=== PATIENT | male | born 1945 | race Caucasian/White ===

== ENCOUNTER → 2020-04-20 13:12 | Outpatient (REF) | payer MEDICARE, SELFPAY ==
--- NOTE | 2020-04-20 13:00 | CA_ITS ---
Transthoracic Echocardiogram Patient (Last, First, Middle): Oscar Chao A Gender: Male Date of : 1945 Age: 74 Procedure Date: 04/20/2020 Procedure Type: Transthoracic Echocardiogram Location: OP Height: 180.34 cm Weight: 95.25 kg BSA: 2.15 m2 Heart Rate: bpm BP: 136 / 78 mmHg Station Helper: JOELLE Huston MD: Juan Ledesma MD Supervisor Metal Placing: Juan Ledesma MD Symptoms: CAD, HTN Study Quality: Technically Difficult ECG Rhythm: Sinus Conclusions: - 1. Technically difficult study despite use of contrast 2. Low normal LV systolic function with grade 1 diastolic dysfunction 3. Limited evaluation of cardiac valves with normal cardiac valvular Doppler 4. No gross pericardial effusion Findings Procedure Information Contrast agent, definity, is being given per protocol without apparent complications. Left Ventricle Normal left ventricular cavity size. There is normal left ventricular wall thickness. The left ventricular systolic function is low normal. The visually estimated ejection fraction is between 50-55%. Spectral Doppler is indicative of an impaired relaxation filling pattern. E/E prime ratio is <8, consistent with normal filling pressures. Evidence suggests grade I (mild) diastolic dysfunction. Right Ventricle Normal right ventricular cavity size and systolic function. Atria Both atria are normal in size. Interatrial shunt cannot be excluded. Aortic Valve The aortic valve structure and function is likely normal. There is no aortic valve stenosis. There is no aortic valve regurgitation. Mitral Valve Likely normal mitral valve structure and function. There is trace mitral valve regurgitation. There is no mitral valve stenosis. Pulmonic Valve The pulmonic valve was not well visualized. Tricuspid Valve The tricuspid valve was not well visualized. Tricuspid regurgitation envelope is inadequate for calculation of right ventricular systolic pressure. Normal right atrial pressure. Great Vessels The aorta was not well visualized. The pulmonary artery was not well visualized. Venous The inferior vena cava is normal in size and collapses greater than 50% with inspiration. Pericardium/Pleural There is no evidence of pericardial effusion. Prior Study Comparison No significant change compared to prior study dated: 05/29/2016. Measurements 2D Linear Measurements RVADd: 0.35 RVIDd: 2.75 IVSd: 0.89 0.6-0.9/0.6-1.0 cm LVIDd: 4.62 3.9-5.3/4.2-5.9 cm LVIDs: 3.75 2.0-3.6 cm LVPWd: 0.93 0.7-1.1 cm Ao Root: 3.54 2.1-3.5 cm LA Diam: 3.20 2.7-3.8/3.0-4.0 cm LV Mass: 176.44 67-162/88-224 g LVOT Diam: 2.35 3.0+(-)1.3 cm Mitral Valve MV Pk E: 0.48 MV PK A: 0.61 MV Decel Time: 281.77 E/A: 0.78 E'Lateral: 0.06 E'Medial: 0.04 PHT: 107.26 Decel [place]: 1.69 Aortic Valve AoV Pk Chris: 0.94 AoV Mn Chris: 0.77 AoV VTI: 0.16 AoV Pk Grad: 3.56 Aov Mn Grad: 2.45 LVOT LVOT Pk Chris: 0.78 LVOT Mn Chris: 0.61 LVOT VTI: 0.14 LVOT Pk Grad: 2.45 LVOT Mn Grad: 1.57 LVOT Diam: 2.35 LVOT Area: 4.33 Diastolic Function MV Pk E: 0.48 MV Pk A: 0.61 E/A: 0.78 E'Medial: 0.04 E' Laterial: 0.06 Tricuspid Valve RA Press: 3.00 Great Vessels Aorta Ao Root-2D: 3.54 2.0-3.7 cm Ao Asc: 3.45 2.1-3.4 cm Ao Arch: 3.07 Updated in Other Vendor System with Status of Final Juan Ledesma MD electronically signed on 04/21/2020 10:38:37 AM with status of Final
== END ==
LOC: HO.CARD 13:12
PROVIDERS: PCP Internal Medicine; Visit Provider Internal Medicine Cardiovascular Disease
DX: I25.10 Atherosclerotic heart disease of native coronary artery without angina pectoris (principal); I10 Essential (primary) hypertension; I45.2 Bifascicular block
CPT/HCPCS: 93306; Q9957

== ENCOUNTER → 2020-06-04 13:27 | Outpatient (BNVA) | payer MEDICARE, SELFPAY | PROVIDERS: PCP Internal Medicine; Referring Provider Internal Medicine; Visit Provider Internal Medicine Cardiovascular Disease | DX: I25.10 Atherosclerotic heart disease of native coronary artery without angina pectoris (principal); I45.2 Bifascicular block; Z79.899 Other long term (current) drug therapy | CPT/HCPCS: 93005; 99212 ==

== ENCOUNTER 2020-06-22 08:37 | Outpatient (REF) | payer MEDICARE, SELFPAY ==
[2020-06-22 10:50] LABS: Cholesterol 187 mg/dL; HDL Cholesterol 61 mg/dL; LDL Cholesterol Calculated 80 mg/dl; Triglycerides 232 mg/dL
== END 2020-06-22 08:38 | disposition home or self-care (01) ==
LOC: HO.LAB 08:37
PROVIDERS: PCP Internal Medicine; Visit Provider Internal Medicine
DX: E78.5 Hyperlipidemia, unspecified (principal)
CPT/HCPCS: 80061

== ENCOUNTER → 2021-05-28 12:14 | Outpatient (BNVA) | payer MEDICARE, SELFPAY | PROVIDERS: PCP Internal Medicine; Referring Provider Internal Medicine; Visit Provider Internal Medicine Cardiovascular Disease | DX: I25.10 Atherosclerotic heart disease of native coronary artery without angina pectoris (principal); I45.2 Bifascicular block | CPT/HCPCS: 93005; 99212 ==

== ENCOUNTER 2021-09-11 07:34 | Outpatient (REF) | payer MEDICARE, SELFPAY ==
[2021-09-11 08:25] LABS: Cholesterol 219 mg/dL; HDL Cholesterol 42 mg/dL; LDL Cholesterol Calculated 116 mg/dl; Triglycerides 306 mg/dL
== END 2021-09-11 07:35 | disposition home or self-care (01) ==
LOC: HO.LAB 07:34
PROVIDERS: PCP Internal Medicine; Visit Provider Internal Medicine
DX: E11.9 Type 2 diabetes mellitus without complications (principal)
CPT/HCPCS: 36415; 80061

== ENCOUNTER 2021-12-25 07:37 | Outpatient (REF) | payer MEDICARE, SELFPAY ==
[2021-12-25 08:53] LABS: Cholesterol 159 mg/dL; HDL Cholesterol 33 mg/dL; LDL Cholesterol Calculated 81 mg/dl; Triglycerides 225 mg/dL
== END 2021-12-25 07:38 | disposition home or self-care (01) ==
LOC: HO.LAB 07:37
PROVIDERS: PCP Internal Medicine; Visit Provider Internal Medicine
DX: Z00.00 Encounter for general adult medical examination without abnormal findings (principal); Z13.220 Encounter for screening for lipoid disorders; E78.5 Hyperlipidemia, unspecified
CPT/HCPCS: 36415; 80061

== ENCOUNTER 2022-05-21 08:02 | Outpatient (REF) | payer MEDICARE, SELFPAY ==
[2022-05-21 08:49] LABS: Cholesterol 190 mg/dL; HDL Cholesterol 47 mg/dL; LDL Cholesterol Calculated 88 mg/dl; Triglycerides 275 mg/dL
== END 2022-05-21 08:03 | disposition home or self-care (01) ==
LOC: HO.LAB 08:02
PROVIDERS: PCP Internal Medicine; Visit Provider Internal Medicine
DX: Z13.220 Encounter for screening for lipoid disorders (principal)
CPT/HCPCS: 36415; 80061

== ENCOUNTER → 2022-05-29 13:21 | Outpatient (BNVA) | payer MEDICARE, SELFPAY | PROVIDERS: PCP Internal Medicine; Referring Provider Internal Medicine; Visit Provider Internal Medicine Cardiovascular Disease | DX: I25.10 Atherosclerotic heart disease of native coronary artery without angina pectoris (principal); I10 Essential (primary) hypertension | CPT/HCPCS: 93005; 99212 ==

== ENCOUNTER → 2022-06-04 13:37 | Outpatient (REF) | payer MEDICARE, SELFPAY ==
--- NOTE | 2022-06-04 13:40 | CA_ITS ---
Transthoracic Echocardiogram Patient (Last, First, Middle): Oscar Chao A Gender: Male Date of : 1945 Age: 76 Procedure Date: 06/04/2022 Procedure Type: Transthoracic Echocardiogram Location: OP Height: 180.34 cm Weight: 99.79 kg BSA: 2.20 m2 Heart Rate: 77 bpm BP: 120 / 80 mmHg Awning Hanger: ANGELA Referring MD: Juan Ledesma MD Crossing Watchman: Juan Ledesma MD Symptoms: I25.10 - Atherosclerotic heart disease of [place] coronary artery without... Study Quality: Poor/Contrast ECG Rhythm: Sinus Conclusions: - 1. Technically limited study despite use of contrast agent 2. Normal LV systolic function with mild LVH with impaired relaxation filling pattern and wall motion abnormality in RCA territory 3. Limited visualization of cardiac valves with normal cardiac valvular Doppler 4. Mildly dilated ascending aorta at 4 cm Findings Procedure Information Contrast agent, definity, is being given per protocol without apparent complications. Left Ventricle Normal left ventricular size and systolic function. There is mildly increased left ventricular wall thickness. The visually estimated ejection fraction is between 55-60%. Spectral Doppler is indicative of an impaired relaxation filling pattern. E/E prime ratio is between 8 and 15 consistent with indeterminate filling pressures. Wall Motion Rest Echo Findings The mid inferior and basal inferoseptal segments are hypokinetic. The basal inferior segment is akinetic. All other scored wall segments showed normal motion. Right Ventricle Normal right ventricular cavity size and systolic function. Atria The left atrium is normal in size. Interatrial shunt cannot be excluded. The right atrium is normal in size. Aortic Valve The aortic valve was not well visualized. There is no aortic valve stenosis. There is no aortic valve regurgitation. Mitral Valve The mitral valve was not well visualized. There is trace mitral valve regurgitation. There is no mitral valve stenosis. Pulmonic Valve The pulmonic valve was not well visualized. Tricuspid Valve The tricuspid valve was not well visualized. Tricuspid regurgitation envelope is inadequate for calculation of right ventricular systolic pressure. Normal right atrial pressure. Great Vessels The pulmonary artery was not well visualized. There is mild dilatation of the ascending aorta measuring 4.00 cm. Venous The inferior vena cava is normal in size and collapses greater than 50% with inspiration. Pericardium/Pleural The pericardium was not well visualized. Prior Study Comparison Changes noted compared to prior study dated: 04/20/2020. Inferior wall motion abnormality noted Measurements 2D Linear Measurements IVSd: 1.30 0.6-0.9/0.6-1.0 cm LVIDd: 4.61 3.9-5.3/4.2-5.9 cm LVIDd Index: 2.10 2.4-3.2/2.2-3.1 cm/m2 LVIDs: 3.03 2.0-3.6 cm LVPWd: 1.27 0.7-1.1 cm LA Diam: 2.80 2.7-3.8/3.0-4.0 cm LAIDs Index: 1.27 1.5-2.3 cm/m2 LV Mass: 283.06 67-162/88-224 g LV Mass Index: 128.66 43-95/49-115 g/m2 LVOT Diam: 2.10 3.0+(-)1.3 cm 2D Systolic Function EF 4C: 57.80 >55% EF 2C: 61.20 >55% EF BiP: 59.40 >55% Mitral Valve MV Pk E: 0.59 MV PK A: 0.75 MV Decel Time: 353.00 E/A: 0.80 E'Lateral: 5.87 E'Medial: 5.52 E/E' Med: 10.60 E/E' Lat: 10.00 PHT: 103.00 MVA PHT: 2.14 Decel [place]: 1.66 Aortic Valve AoV Pk Chris: 1.18 AoV Mn Chris: 0.82 AoV VTI: 0.23 AoV Pk Grad: 6.00 Aov Mn Grad: 3.00 JUSTINO Cont.VTI: 2.79 LVOT LVOT Pk Chris: 0.90 LVOT Mn Chris: 0.66 LVOT VTI: 0.19 LVOT Pk Grad: 3.00 LVOT Mn Grad: 2.00 LVOT Diam: 2.10 LVOT Area: 3.46 Diastolic Function MV Pk E: 0.59 MV Pk A: 0.75 E/A: 0.80 E'Medial: 5.52 E/E' Med: 10.60 E' Laterial: 5.87 E/E' Lat: 10.00 Right Ventricle TAPSE (mm): 18.90 TVS' Chris: 10.80 Tricuspid Valve RA Press: 3.00 Great Vessels Aorta Sinus of Valsalva: 4.20 2.0-3.5 cm Ao Asc: 4.00 2.1-3.4 cm Pulmonary Valve PV Pk Chris: 0.95 Peak PV Grad: 4.00 Updated in Other Vendor System with Status of Final Juan Ledesma MD electronically signed on 06/05/2022 12:27:23 PM with status of Final
== END ==
LOC: HO.CARD 13:37
PROVIDERS: Visit Provider Internal Medicine Cardiovascular Disease
DX: I25.10 Atherosclerotic heart disease of native coronary artery without angina pectoris (principal)
CPT/HCPCS: 93306; Q9957

== ENCOUNTER 2022-09-29 08:02 | Outpatient (REF) | payer MEDICARE, SELFPAY ==
[2022-09-29 08:16] LABS: MANUAL DIFF FLAG NO
[2022-09-29 08:40] LABS: Basophils Percent Auto 0.5 % (0-2); Eosinophils Absolute Auto 0.2 X10*3/uL (0.0-0.4); Eosinophils Percent Auto 3.7 % (0-4); Hematocrit 45.1 % (42.0-52.0); Hemoglobin 14.8 g/dl (14.0-18.0); Imm Gran Abs Auto 0.02 X10*3/uL (0.00-0.03); Imm Gran Pct Auto 0.3 % (0.0-0.4); Lymphocytes Absolute Auto 2.9 X10*3/uL (1.2-4.9); Lymphocytes Percent Auto 47.5 % (20-40); Mean Corpuscular HGB Conc 32.8 g/dl (31.0-36.0); Mean Corpuscular Hemoglobin 30.3 pg (27.0-33.0); Mean Corpuscular Volume 92.4 fL (80.0-98.0); Mean Platelet Volume 9.1 fL (9.4-12.4); Monocytes Absolute Auto 0.6 X10*3/uL (0.1-1.2); Monocytes Percent Auto 9.8 % (2-11); Neutrophils Absolute Auto 2.4 x10*3/uL (2.0-8.3); Neutrophils Percent Auto 38.2 % (45-73); Platelet Count 150 X10*3/uL (160-400); Red Blood Count 4.88 X10*6/uL (4.60-5.80); White Blood Count 6.2 X10*3/uL (4.8-10.8)
[2022-09-29 09:16] LABS: Alanine Aminotransferase 21 U/L (0-40); Albumin Level 4.2 g/dL (3.5-5.0); Alkaline Phosphatase 48 U/L (39-117); Anion Gap 16 (12-20); Aspartate Amino Transferase 22 U/L (5-37); Blood Urea Nitrogen 18 mg/dL (9-16); Calcium 9.6 mg/dL (8.4-10.2); Carbon Dioxide 27 mmol/L (22-29); Chloride 104 mmol/L (96-108); Cholesterol 231 mg/dL; Estimated Glomerular Filt Rate > 60; Glucose Fasting 137 mg/dL (60-99); HDL Cholesterol 46 mg/dL; LDL Cholesterol Calculated 118 mg/dl; Potassium 5.5 mmol/L (3.3-5.1); Sodium 141 mmol/L (135-145); Total Protein 6.8 g/dL (6.5-8.0); Triglycerides 337 mg/dL
[2022-09-29 09:33] LABS: Thyroid Stimulating Hormone 1.28 uIU/mL (0.32-4.0)
== END 2022-09-29 08:03 | disposition home or self-care (01) ==
LOC: HO.LAB 08:02
PROVIDERS: PCP Internal Medicine; Visit Provider Internal Medicine
DX: E78.5 Hyperlipidemia, unspecified (principal); E03.9 Hypothyroidism, unspecified; I10 Essential (primary) hypertension; Z13.0 Encounter for screening for diseases of the blood and blood-forming organs and certain disorders involving the immune mechanism
CPT/HCPCS: 36415; 80053; 80061; 84443; 85025

== ENCOUNTER 2023-01-02 08:05 | Outpatient (REF) | payer MEDICARE, SELFPAY ==
[2023-01-02 09:00] LABS: Cholesterol 172 mg/dL; HDL Cholesterol 56 mg/dL; LDL Cholesterol Calculated 71 mg/dl; Triglycerides 227 mg/dL
== END 2023-01-02 08:06 | disposition home or self-care (01) ==
LOC: HO.LAB 08:05
PROVIDERS: PCP Internal Medicine; Visit Provider Internal Medicine
DX: E78.5 Hyperlipidemia, unspecified (principal)
CPT/HCPCS: 36415; 80061

== ENCOUNTER 2023-04-06 07:32 | Outpatient (REF) | payer MEDICARE, SELFPAY ==
[2023-04-06 08:51] LABS: Cholesterol 211 mg/dL (<200); HDL Cholesterol 47 mg/dL (>40); LDL Cholesterol Calculated 114 mg/dL (<100); Triglycerides 252 mg/dL (<150)
== END 2023-04-06 07:33 | disposition home or self-care (01) ==
LOC: HO.LAB 07:32
PROVIDERS: PCP Internal Medicine; Visit Provider Internal Medicine
DX: E78.5 Hyperlipidemia, unspecified (principal)
CPT/HCPCS: 36415; 80061

== ENCOUNTER 2023-04-10 14:07 | Outpatient (AMB) | payer MEDICARE, SELFPAY ==
[2023-04-10 14:08] VITALS: BP 128/72; PULSE 80; O2SAT 98; BMI 31.2
--- NOTE | 2023-04-10 14:08 | A.OFFPC_ITS ---
Vital Signs 04/10/23 14:08 Height 5 ft 11 in Weight 224 lb BMI 31.2 BP 128/72 Blood Pressure Location Lt brachial Position Sitting Pulse 80 Pulse Source Pulse Oximeter Pulse Oximetry (%) 98 Oxygen Delivery Method Room Air Intake Visit Reasons: 3 Month F/Up Him Clerk: Not Required per policy Accompanied by: Self / Same As Patient Allergies No Known Allergies [No Known Allergies*] Allergy (Verified 04/10/23 14:09) Medication List - Last Reconciled 04/10/23 by Keagan Carbajal MD amoxicillin 250 mg PO Q8H aspirin (Adult Aspirin Regimen) 81 mg PO DAILY atorvastatin 40 mg PO DAILY lisinopril 20 mg PO DAILY metoprolol succinate ER 100 mg PO DAILY Tobacco use date assessed: 01/08/23 Fall risk assessment: No Falls in past year Last assessed Fall Risk: 04/10/23 Dental Screening Dental Screen Date: 04/10/23 Did you have a dental visit in the last 12 months?: Yes Did you have a dental problem in the last 6 months where you did not have access to dental care?: No Was dental information given to patient?: Patient has dentist HPI 3 Month F/Up HPI Details HTN and hyperlip on rx; dietary indiscretion increased his chol PFSH Medical History Bifascicular block History of prosthetic unicompartmental arthroplasty of both knees Hyperlipidemia HTN (hypertension) CAD (coronary artery disease) Surgical History H/O left knee surgery Family History Father No problems noted. Mother No problems noted. Social History Housing: House Alcohol intake: current Alcohol intake frequency: a few times a month Patient Tobacco Use Status: Former Tobacco user e-Cigarette/Vaping Use: Never Used Second Hand Smoke Exposure: No service: No Current occupational status: retired Cognitive needs: No Hearing needs: No Vision needs: Yes (reading glasses) Questionnaire PHQ-9 Over the last 2 weeks, how often have you been bothered by any of the following problems? 1. Little interest or pleasure in doing things: not at all 2. Feeling down, depressed, or hopeless: not at all 3. Trouble falling or staying asleep, or sleeping too much: not at all 4. Feeling tired or having little energy: not at all 5. Poor appetite or overeating: not at all 6. Feeling bad about yourself - or that you are a failure or have let yourself or your family down: not at all 7. Trouble concentrating on things, such as reading the newspaper or watching television: not at all 8. Moving or speaking so slowly that other people could have noticed. Or the opposite - being so fidgety or restless that you have been moving around a lot more than usual: not at all Depression Screening Interpretation: Negative Source: Developed by Drs. Reynold Bhagat, Radha Esqueda, Aubrey Garcia and colleagues, with an educational shivam from [employer] Thrive Questionnaire Date Thrive assessed: 10/08/22 AUDIT C Alcohol Use Questionnaire (AUDIT-C) 1. How often do you have a drink containing alcohol?: Monthly or less Total Score: 1 LYNDA-7 AMB Questionnaire LYNDA-7 Date LYNDA - 7 assessed: 10/08/22 Source: Developed by Drs. Reynold Bhagat, Radha Esqueda, Aubrey Garcia and colleagues, with an educational shivam from [employer] Review of Systems Const Denies chills, Denies headache(s) and Denies weight loss ENT Denies headache(s) Card Denies chest pain, Denies syncope, Denies irregular heart rhythm and Denies dyspnea Resp Denies chest congestion, Denies cough and Denies dyspnea GI Denies abdominal pain, Denies change in stool character, Denies nausea and Denies vomiting Musc Denies deformity and Denies joint swelling Neuro Denies syncope and Denies headache(s) Physical exam (Primary Care) Vital Signs: Last Vital Signs Pulse 80 04/10/23 14:08 BP 128/72 04/10/23 14:08 Pulse Ox 98 04/10/23 14:08 Oxygen Delivery Method Room Air 04/10/23 14:08 BMI result Body Mass Index 31.2 Tobacco/Smoking Status: Tobacco use Status Tobacco use date assessed 01/08/23 04/10/23 14:12 Patient Tobacco Use Status Former Tobacco user 04/10/23 14:12 e-Cigarette/Vaping Use Never Used 04/10/23 14:12 Depression Screening Interpretation: Negative Thrive Assessment: Date of Thrive Assessment Date Thrive assessed 10/08/22 04/10/23 14:12 Const General: cooperative, comfortable, no acute distress and alert Neck Neck: Yes no lymphadenopathy Thyroid: Thyroid normal Resp Effort & Inspection: normal respiratory effort Auscultation: clear to auscultation bilaterally Percussion: percussion normal Cardio Jugular venous distension: no JVD Palpation: normal PMI Rate: regular rate Rhythm: regular rhythm Heart sounds: S1 normal heart sound present and S2 normal heart sound present GI Inspection: Yes normal to inspection Palpation (GI): No hepatosplenomegaly present Skin General skin exam: no rashes or lesions noted Extrem General: Yes no clubbing, cyanosis or edema Assessment and Plan Assessment & Plan (1) HTN (hypertension): Code(s): I10 - Essential (primary) hypertension Plan: stable; same rx (2) Hyperlipidemia: Comment: stable; same rx Code(s): E78.5 - Hyperlipidemia, unspecified Orders: Orders Complete Blood Count Auto Diff Today D64.9 - Anemia, unspecified Comprehensive [place]. Panel Fast Today N28.9 - Disorder of kidney and ureter, unspecified Thyroid Stimulating Hormone Today E03.9 - Hypothyroidism, unspecified Lipid Panel Today E78.5 - Hyperlipidemia, unspecified Coding Level of Care Code Est Pt Level 3 (43475) Diagnoses HTN (hypertension) I10 Hyperlipidemia E78.5
== END 2023-04-10 14:22 | disposition home or self-care (01) ==
PROVIDERS: PCP Internal Medicine; Visit Provider Internal Medicine
DX: I10 Essential (primary) hypertension (principal); E78.5 Hyperlipidemia, unspecified
CPT/HCPCS: 99213

== ENCOUNTER 2023-05-28 14:30 | Outpatient (AMB) | payer MEDICARE, SELFPAY ==
[2023-05-28 14:37] VITALS: BP 124/80; PULSE 85; BMI 31.4
--- NOTE | 2023-05-28 14:37 | A.OFFVIS_ITS ---
Intake Vital Signs 05/28/23 14:37 Height 5 ft 11 in Weight 224 lb 13.944 oz BMI 31.4 BP 124/80 Blood Pressure Location Lt brachial Position Sitting Pulse 85 Intake Visit Reasons: 1 yr f/up Intake Note: 1 year follow-up with ekg feeling good Certified Orthotist/Pedorthist Required: No Allergies No Known Allergies [No Known Allergies*] Allergy (Verified 04/10/23 14:09) Medication List - Last Reconciled 05/28/23 by Juan Ledesma MD aspirin (Adult Aspirin Regimen) 81 mg PO DAILY atorvastatin 40 mg PO DAILY lisinopril 20 mg PO DAILY metoprolol succinate ER 100 mg PO DAILY HPI HPI Comments History of Present Illness Details Oscar comes for follow-up. Recent lipid panel suggested elevated LDL at 114. Unclear reason he thinks this is related to recent vacation with dietary indiscretion not taking his medications. He denies any exertional symptoms. Denies any prolonged palpitations irregular heartbeat. Denies any exertional chest pain or shortness of breath. No orthopnea, PND. Taking all his medications regularly. [facility] Medical History Bifascicular block History of prosthetic unicompartmental arthroplasty of both knees Hyperlipidemia HTN (hypertension) CAD (coronary artery disease) Surgical History H/O left knee surgery Family History Father No problems noted. Mother No problems noted. Social History Housing: House Alcohol intake: current Alcohol intake frequency: a few times a month Patient Tobacco Use Status: Former Tobacco user e-Cigarette/Vaping Use: Never Used Second Hand Smoke Exposure: No service: No Current occupational status: retired Cognitive needs: No Hearing needs: No Vision needs: Yes (reading glasses) Review of Systems Const Denies chills, Denies fatigue, Denies fever(s), Denies frequent falls, Denies weakness, Denies weight gain and Denies weight loss ENT Denies dizziness Card Denies chest pain, Denies leg edema, Denies lightheadedness, Denies palpitations, Denies dyspnea, Denies dyspnea on exertion, Denies orthopnea and Denies other (loss of consciousness) Resp Denies cough, Denies dyspnea and Denies dyspnea on exertion GI Denies hematochezia and Denies change in stool character Musc Denies abnormal gait, Denies muscle weakness, Denies numbness, Denies radiating pain into limb and Denies tingling Neuro Denies abnormal gait, Denies dizziness, Denies frequent falls, Denies numbness, Denies tingling and Denies weakness Endo Denies fatigue and Denies palpitations Physical Exam Vital Signs: Last Vital Signs Pulse 85 05/28/23 14:37 BP 124/80 05/28/23 14:37 BMI result Body Mass Index 31.4 Const General: cooperative, comfortable, no acute distress and alert Nutritional Appearance: obese Orientation/consciousness: patient oriented x3 Limitations: no limitations HEENT Head: Yes normal to inspection, Yes normocephalic and Yes atraumatic Eyes General: appearance normal, both eyes and all related structures Neck Neck: Yes normal visual inspection, Yes trachea midline and Yes supple Carotids: other ( No carotid bruit) Chest Chest palpation & inspection: normal inspection of the chest Resp Effort & Inspection: normal respiratory effort Auscultation: clear to auscultation bilaterally Cardio Jugular venous distension: no JVD Palpation: normal PMI Rate: regular rate Rhythm: regular rhythm Heart sounds: S1 normal heart sound present, S2 normal heart sound present and Other heart sounds present ( S4 present) Peripheral pulses: Peripheral pulses 2+ throughout GI Inspection: Yes obesity Auscultation: normal bowel sounds Skin General skin exam: no rashes or lesions noted and ecchymosis Neuro General: patient oriented x3 and no focal motor deficits Extrem General: Yes no clubbing, cyanosis or edema Psych Appearance: grossly normal Office Procedures EKG Details: EKG shows normal sinus rhythm with bifascicular block with inferior infarct, unchanged from before. [id number], Complete Assessment & Plan Assessment & Plan (1) CAD (coronary artery disease): Code(s): I25.10 - Atherosclerotic heart disease of [place] coronary artery without angina pectoris Plan: CAD with prior silent inferior myocardial infarction without any obvious current symptoms. Symptoms may be mass because of his silent ischemia. Patient to continue aggressive medical therapy. Continue aspirin therapy for life. Continue aggressive blood pressure control which is currently well optimized. LDL is not well optimized which may be due to temporary indiscretion with medical therapy as well as diet. Advise follow-up lipid panel in 6 weeks time. If persists with elevated triglycerides and LDL will require further therapy. This was discussed with him. Will pursue stress test next year to assess for myocardial ischemia. This was discussed with him. Advised to participate in regular physical activity and weight loss program. He understands and agrees. (2) HTN (hypertension): Code(s): I10 - Essential (primary) hypertension Plan: Hypertension which is currently well optimized advised to monitor blood pressure at home maintain a log. Goal blood pressure less than 130/84. Advised to maintain low-salt diet. Advised to maintain activity level as tolerated. (3) Bifascicular block: Code(s): I45.2 - Bifascicular block Plan: Bifascicular block on EKG which is chronic. No change in therapy recommended at this point in time. Continue monitor. Low risk for progressive conduction system disease was discussed. Follow up in the clinic 1 year's time, sooner p.r.n.. Thank you for allowing me to partake in her care Orders: Orders Lipid Panel 6 Weeks I25.10 - Atherosclerotic heart disease of [place] coronary artery without angina pectoris Coding Level of Care Code Est Pt Level 4 (49990) Diagnoses CAD (coronary artery disease) I25.10 HTN (hypertension) I10 Bifascicular block I45.2 CPT Codes EKG - CPT: 16424-[id number], Complete ([id number])
== END 2023-05-28 14:54 | disposition home or self-care (01) ==
PROVIDERS: Visit Provider Internal Medicine Cardiovascular Disease
DX: I25.10 Atherosclerotic heart disease of native coronary artery without angina pectoris (principal); I10 Essential (primary) hypertension; I45.2 Bifascicular block
CPT/HCPCS: 93010; 99214

== ENCOUNTER → 2023-05-28 14:30 | Outpatient (BNVA) | payer MEDICARE, SELFPAY | PROVIDERS: Visit Provider Internal Medicine Cardiovascular Disease | DX: I25.10 Atherosclerotic heart disease of native coronary artery without angina pectoris (principal); I10 Essential (primary) hypertension; I45.2 Bifascicular block | CPT/HCPCS: 93005; 99212 ==

== ENCOUNTER 2023-07-08 08:40 | Outpatient (REF) | payer MEDICARE, SELFPAY ==
[2023-07-08 09:56] LABS: Cholesterol 176 mg/dL (<200); HDL Cholesterol 56 mg/dL (>40); LDL Cholesterol Calculated 82 mg/dL (<100); Triglycerides 194 mg/dL (<150)
== END 2023-07-08 08:41 | disposition home or self-care (01) ==
LOC: HO.LAB 08:40
PROVIDERS: Internal Medicine Cardiovascular Disease; PCP Internal Medicine; Visit Provider Internal Medicine
DX: I25.10 Atherosclerotic heart disease of native coronary artery without angina pectoris (principal)
CPT/HCPCS: 36415; 80061

== ENCOUNTER 2023-07-14 20:05 | Emergency (ER) | payer MEDICARE, SELFPAY ==
--- NOTE | 2023-07-14 20:22 | ECG_ITS ---
Test Reason : SOB Blood Pressure : / mmHG Vent. Rate : 079 BPM Atrial Rate : 079 BPM P-R Int : 144 ms QRS Dur : 146 ms QT Int : 410 ms P-R-T Axes : 034 -47 039 degrees QTc Int : 470 ms Normal sinus rhythm Right bundle branch block Left anterior fascicular block Bifascicular block Cannot rule out Inferior infarct (cited on or before 09-DEC-2009) Abnormal ECG When compared with ECG of 18-APR-2016 10:23, No significant changes seen Referred By: Generic ED Physician Electronically Signed By:NANETTE MAZARIEGOS
[2023-07-14 20:26] VITALS: BP 143/78; PULSE 82; TEMP 36.8; O2SAT 96; BMI 37.1
--- NOTE | 2023-07-14 20:26 | ED_ITS ---
[facility] - General Adult General Chief complaint: Dizziness Stated complaint: dizzy, weakness, difficulty breathing Time Seen by Provider: 07/14/23 21:04 Source: patient and family () Mode of arrival: ambulatory History of Present Illness HPI narrative: 77-year-old male with history of hypertension and OH who presents with experiencing lightheadedness while sitting at the table and this was associated with mild shortness of breath and nausea but no chest pain or diaphoresis. Patient states he has otherwise been feeling well, but he was concerned because sensation felt similar to when he had his heart attack. Patient is completely asymptomatic at this time, he did have orthostatics measured and denies any feelings of lightheadedness or dizziness during the exercise. Related Data Previous Rx's Medication Instructions Recorded aspirin 81 mg tablet,delayed 81 mg PO DAILY #30 tabs 05/28/21 release (Adult Aspirin Regimen) lisinopril 20 mg tablet 20 mg PO DAILY #90 tabs 09/11/22 metoprolol succinate 100 mg 100 mg PO DAILY #90 tabs 05/01/23 tablet,extended release 24 hr atorvastatin 40 mg tablet 40 mg PO DAILY #90 tabs 06/25/23 Allergies Allergy/AdvReac Type Severity Reaction Status Date / Time No Known Allergies Allergy Verified 07/14/23 20:26 [No Known Allergies*] Review of Systems 2 Review of Systems: Pertinent positives and negatives as stated in [facility] Past Medical History Source: nursing notes reviewed Medical History Bifascicular block History of prosthetic unicompartmental arthroplasty of both knees Hyperlipidemia HTN (hypertension) CAD (coronary artery disease) Surgical History H/O left knee surgery Family History Family History Father No problems noted. Mother No problems noted. Social History Social History Housing: House Alcohol intake: current Alcohol intake frequency: a few times a month Patient Tobacco Use Status: Former Tobacco user Smoked in Last 30 Days: No e-Cigarette/Vaping Use: Never Used Second Hand Smoke Exposure: No Use of substances other than those prescribed or required for medical reasons: No Advance Directives: No Advance Directives Information Provided: No service: No Current occupational status: retired Cognitive needs: No Hearing needs: No Vision needs: Yes (reading glasses) Physical Exam ED Vital Signs: Vital Signs - 24 hr 07/14/23 20:26 07/14/23 21:27 07/14/23 21:28 Temperature 98.3 F Pulse Rate 82 70 75 Respiratory Rate Blood Pressure 143/78 H 137/70 138/64 Pulse Oximetry 96 Oxygen Delivery Method Nasal Cannula 07/14/23 21:29 07/14/23 21:31 07/14/23 23:24 Temperature 98.0 F 98.2 F Pulse Rate 82 75 78 Respiratory Rate 16 16 Blood Pressure 133/77 132/71 141/78 H Pulse Oximetry 98 96 Oxygen Delivery Method Room Air Room Air BMI result Body Mass Index 37.1 VITAL SIGNS: Reviewed. GENERAL: Well developed, well nourished, in no acute distress. HEAD: Normocephalic/atraumatic EYES: PERRLA, EOMI EARS: Ext canals without abnormality NOSE: Nares patent bilateral OROPHARYNX: no oral lesions noted, posterior pharynx clear s NECK: Supple, no adenopathy LUNGS: Normal breath sounds. No adventitious sounds or accessory muscle use. SpO2<98> CARDIOVASCULAR: Regular rate and rhythm without noted murmurs, no JVD or lower extremity edema. ABDOMEN: Soft, non-tender, non-distended with bowel sounds. MUSCULOSKELETAL: No tenderness, deformities, or effusions noted on gross inspection. EXTREMITIES: No cyanosis, clubbing or edema. SKIN: Inspection of the skin reveals no rashes NEUROLOGIC: Alert and oriented x 4. Strength and sensation to light touch were grossly intact x 4, no facial asymmetry, no pronator drift, cranial nerves 2-12 are grossly intact. Course Course Course Narrative: RME:?77 yo male hx CAD, HTN, here with complaint of light headedness/ dizzy. woke up feeling generally unwell. 2-3 hours ago began to feel light headed light he was going to pass out. He reports shortness of breath at baseline, worse with exertion. Follows with Dr. Ledesma and was told at one point he had a small heart attack . No cardiac stents. No recent travel or long car ride. No sick contacts. Not on AC. aspirin 81mg daily. Denies ROBERT, cough, chest pain, palpitations. Plan: ekg, labs Full HPI, ROS and PE to be performed by the primary ED provider. Medical Decision Making Medical Decision Making [facility] Narrative: 77-year-old male with history and clinical presentation, DDX: Viral illness, hypovolemia, lower clinical suspicion for cardiopulmonary etiology. Patient is asymptomatic at this time. HEART Score:5 I reviewed all investigations and hematologic indices are negative for leukocytosis or left shift, patient has no anemia but does have a stable thrombocytopenia. Chemistry indices to not demonstrate any SANDHYA and there are no electrolyte or liver enzyme derangements. High sensitivity troponin-3.9 which will be repeated. Viral testing is negative for COVID/influenza. After review of serial troponins, there is no delta change, there are no acute changes on EKG and patient is asymptomatic. I am not identified any infectious or electrolyte derangements to better explain patient's condition either. I do feel like he will benefit from an outpatient stress test. I have copied this note over to both his primary care doctor as well as Cardiology and he is encouraged to follow-up with both 1st thing in the morning or further outpatient evaluation. Differential Diagnosis Differential Diagnoses: The differential diagnosis associated with the presentation includes Please see the discussion above Admission/Observation Consideration of admission/observation: Escalation of care including admission/observation considered Please see the discussion above Lab Data MDM Lab Attestation statement: I reviewed the patient's lab results. Please see the discussion above 07/14/23 20:41 07/14/23 20:41 Labs: Lab Results 07/14/23 07/14/23 07/14/23 Range/Units 20:41 21:33 23:31 WBC 5.8 (4.8-10.8) X10*3/uL RBC 4.61 (4.60-5.80) X10*6/uL Hgb 14.3 (14.0-18.0) g/dl Hct 42.5 (42.0-52.0) % MCV 92.2 (80.0-98.0) fL MCH 31.0 (27.0-33.0) pg MCHC 33.6 (31.0-36.0) g/dl RDW 12.6 (11.0-16.0) % Plt Count 150 L (160-400) X10*3/uL MPV 8.3 L (9.4-12.4) fL Immature Gran % (Auto) 0.7 H (0.0-0.4) % Neut % (Auto) 45.8 (45-73) % Lymph % (Auto) 37.4 (20-40) % [place] % (Auto) 11.4 H (2-11) % Eos % (Auto) 4.2 H (0-4) % Baso % (Auto) 0.5 (0-2) % Lymph # (Auto) 2.2 (1.2-4.9) X10*3/uL [place] # (Auto) 0.7 (0.1-1.2) X10*3/uL Eos # (Auto) 0.2 (0.0-0.4) X10*3/uL Baso # (Auto) 0.0 (0.0-0.2) X10*3/uL Abs Immat Gran (auto) 0.04 H (0.00-0.03) X10*3/uL Absolute Neuts (auto) 2.6 (2.0-8.3) x10*3/uL Absolute Nucleated RBC 0.000 (0.0-0.012) X10*3/uL Nucleated RBC % (auto) 0.0 (0.0-0.2) /100WBC Sodium 138 (135-145) mmol/L Potassium 4.1 D (3.3-5.1) mmol/L Chloride 106 (96-108) mmol/L Carbon Dioxide 23 (22-29) mmol/L Anion Gap 13 (12-20) BUN 25 H (9-16) mg/dL Creatinine 1.29 (0.5-1.4) mg/dL Estim Creat Clear Calc 57.8 Estimated GFR 54 Random Glucose 113 (60-115) mg/dL Calcium 9.4 (8.4-10.2) mg/dL Total Bilirubin 0.5 (0.0-1.0) mg/dL AST 29 (5-37) U/L ALT 33 (0-40) U/L Alkaline Phosphatase 43 (39-117) U/L Troponin I High Sens 3.9 4.2 (<3.5-35.0) ng/L Total Protein 7.3 (6.5-8.0) g/dL Albumin 4.1 (3.5-5.0) g/dL COVID-19 (JOSIANE) Negative (Negative) COVID-19 Clin Com See Note Influenza Type A (ANASTASIA) Negative (Negative) Influenza Type B (ANASTASIA) Negative (Negative) Influenza A & B Note See Note Independent Interpretation I performed an independent interpretation of an: EKG Interpretation: Normal sinus rhythm, HR-79, RBBB, no STEMI, OR/QTC is within normal limits.When I compared the EKG to 05/28/2023 there are no significant changes. External Record Review External record reviewed: Office record, Outpatient record, Prior outpatient labs and Prior outpatient radiology Chronic Conditions Patient?s care impacted by: Hypertension and Other CAD Critical Care Time Critical Care Time Critical Care Time: Yes Total Critical Care Time: 30 Attestation: I personally attest to this time spent taking care of the patient. Discharge Plan Discharge Clinical Impression: CAD (coronary artery disease), Light-headedness Patient Disposition: Home, Self-Care Instructions: Coronary Artery Disease (DC), Lightheadedness (ED) Additional Instructions: 1. Resume all home medications as prescribed. 2. Please reach out to [facility] as well as your primary care doctor to discuss further outpatient evaluation, recommend discussion for stress testing. Return to the ER if you develop any acute worsening symptoms. Prescriptions: No Action lisinopril 20 mg tablet 20 mg PO DAILY Qty: 90 8RF metoprolol succinate 100 mg tablet extended release 24 hr 100 mg PO DAILY Qty: 90 3RF atorvastatin 40 mg tablet 40 mg PO DAILY Qty: 90 3RF aspirin [Adult Aspirin Regimen] 81 mg tablet,delayed release (DR/EC) 81 mg PO DAILY Qty: 30 0RF Referrals: Keagan Carbajal MD [Primary Care Provider] - Estevan Aiken MD [Physician] -
[2023-07-14 20:46] LABS: MANUAL DIFF FLAG NO
[2023-07-14 20:48] LABS: Basophils Percent Auto 0.5 % (0-2); Eosinophils Absolute Auto 0.2 X10*3/uL (0.0-0.4); Eosinophils Percent Auto 4.2 % (0-4); Hematocrit 42.5 % (42.0-52.0); Hemoglobin 14.3 g/dl (14.0-18.0); Imm Gran Abs Auto 0.04 X10*3/uL (0.00-0.03); Imm Gran Pct Auto 0.7 % (0.0-0.4); Lymphocytes Absolute Auto 2.2 X10*3/uL (1.2-4.9); Lymphocytes Percent Auto 37.4 % (20-40); Mean Corpuscular HGB Conc 33.6 g/dl (31.0-36.0); Mean Corpuscular Volume 92.2 fL (80.0-98.0); Mean Platelet Volume 8.3 fL (9.4-12.4); Monocytes Absolute Auto 0.7 X10*3/uL (0.1-1.2); Monocytes Percent Auto 11.4 % (2-11); Neutrophils Absolute Auto 2.6 x10*3/uL (2.0-8.3); Neutrophils Percent Auto 45.8 % (45-73); Platelet Count 150 X10*3/uL (160-400); Red Blood Count 4.61 X10*6/uL (4.60-5.80); Red Cell Distribution Width 12.6 % (11.0-16.0); White Blood Count 5.8 X10*3/uL (4.8-10.8)
[2023-07-14 21:04] LABS: Alanine Aminotransferase 33 U/L (0-40); Albumin Level 4.1 g/dL (3.5-5.0); Alkaline Phosphatase 43 U/L (39-117); Anion Gap 13 (12-20); Aspartate Amino Transferase 29 U/L (5-37); Bilirubin Total 0.5 mg/dL (0.0-1.0); Blood Urea Nitrogen 25 mg/dL (9-16); Calcium 9.4 mg/dL (8.4-10.2); Carbon Dioxide 23 mmol/L (22-29); Chloride 106 mmol/L (96-108); Creatinine Clr Calc Pharmacy 57.8; Estimated Glomerular Filt Rate 54; Glucose Random 113 mg/dL (60-115); Potassium 4.1 mmol/L (3.3-5.1); Sodium 138 mmol/L (135-145); Total Protein 7.3 g/dL (6.5-8.0)
[2023-07-14 21:10] LABS: Troponin-I High Sensitivity 3.9 ng/L (<3.5-35.0)
[2023-07-14 21:27] VITALS: BP 137/70; PULSE 70
[2023-07-14 21:28] VITALS: BP 138/64; PULSE 75
[2023-07-14 21:29] VITALS: BP 133/77; PULSE 82
[2023-07-14 21:31] VITALS: BP 132/71; PULSE 75; RESP 16; TEMP 36.7; O2SAT 98
--- NOTE | 2023-07-14 21:36 | MHC.EDTECH ---
Patient covid and flu swab collected and sent to lab ,orthostatics vitals taken ,Pt at bedside .
--- NOTE | 2023-07-14 21:37 | PC.NURSE ---
pt aox4. coming from home. at bedside. comes to Ed with dizziness, lighteheadedness and weakness since this morning. Pt reports that his inspector clip on sunglasses indicated that he may have had a heart attack in the past that he did not go to the hospital for. Pt thinks these symptoms might be related to a heart attack and was told be his doctor to come in. Denies chest pain, endorses some mild shortness of breath. Denies URI symptoms. labs and ekg done, IV inserted right AC.
[2023-07-14 22:00] LABS: COVID-19 Test Negative (Negative); IDNOW Serial# 08D9AD1C; IDNOW Serial# BCCEAD1C; Influenza A Negative (Negative); Influenza B2 Negative (Negative)
[2023-07-14 23:24] VITALS: BP 141/78; PULSE 78; RESP 16; TEMP 36.8; O2SAT 96
--- NOTE | 2023-07-14 23:36 | MHC.EDTECH ---
Patient repeated trop drawn and sent to lab ,vitals taken ,pt at bedside .
[2023-07-14 23:59] LABS: Troponin-I High Sensitivity 4.2 ng/L (<3.5-35.0)
--- NOTE | 2023-07-15 00:50 | PC.NURSE ---
Pt a&o, denies any sob or chest pain upon discharge, Reviewed discharge instructions with pt, pt verbalized understanding, no sign of distress. pt discharge home with steady gait.
== END 2023-07-15 00:53 | disposition home or self-care (01) ==
PROVIDERS: Emergency Provider Student in an Organized Health Care Education/Training Program; PCP Internal Medicine
DX: I25.10 Atherosclerotic heart disease of native coronary artery without angina pectoris (principal); R42 Dizziness and giddiness; R06.02 Shortness of breath; Z11.52 Encounter for screening for COVID-19; Z20.822 Contact with and (suspected) exposure to COVID-19; Z79.899 Other long term (current) drug therapy
CPT/HCPCS: 36415; 80053; 84484; 85025; 87502; 87635; 93005; 99283; 99285

== ENCOUNTER → 2023-07-14 20:22 | Outpatient (BNV) | payer MEDICARE, SELFPAY | PROVIDERS: Emergency Provider Student in an Organized Health Care Education/Training Program; PCP Internal Medicine; Visit Provider Internal Medicine | DX: I45.2 Bifascicular block (principal); R06.02 Shortness of breath | CPT/HCPCS: 93010 ==

== ENCOUNTER 2023-07-21 13:53 | Outpatient (AMB) | payer MEDICARE, SELFPAY ==
[2023-07-21 13:57] VITALS: BP 120/78; PULSE 80; O2SAT 98; BMI 34.2
--- NOTE | 2023-07-21 13:57 | MHC.PC.OV ---
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 Hat Presser Required: No Forest Technician: Not Required per policy Accompanied by: Self / Same As Patient Allergies No Known Allergies [No Known Allergies*] Allergy (Verified 07/21/23 13:57) Medication List - Last Reconciled 07/21/23 by Keagan Carbajal MD aspirin (Adult Aspirin Regimen) 81 mg PO DAILY atorvastatin 40 mg PO DAILY lisinopril 20 mg PO DAILY metoprolol succinate ER 100 mg PO DAILY Tobacco use date assessed: 01/08/23 Fall risk assessment: 1 Fall in past year Last assessed Fall Risk: 07/21/23 Dental Screening Dental Screen Date: 07/21/23 Did you have a dental visit in the last 12 months?: No Did you have a dental problem in the last 6 months where you did not have access to dental care?: No Was dental information given to patient?: Patient has dentist HPI 3 Months F/U HPI Details HTN and hyperlipidemia; stable; doing well [facility] Medical History (Updated 07/21/23 @ 14:31 by Keagan Carbajal MD) Bifascicular block History of prosthetic unicompartmental arthroplasty of both knees Hyperlipidemia HTN (hypertension) CAD (coronary artery disease) Surgical History H/O left knee surgery Family History Father No problems noted. Mother No problems noted. Social History Housing: House Alcohol intake: current Alcohol intake frequency: a few times a month Patient Tobacco Use Status: Former Tobacco user e-Cigarette/Vaping Use: Never Used Second Hand Smoke Exposure: No service: No Current occupational status: retired Cognitive needs: No Hearing needs: No Vision needs: Yes (reading glasses) Questionnaire Thrive Questionnaire Date Thrive assessed: 10/08/22 LYNDA-7 AMB Questionnaire LYNDA-7 Date LYNDA - 7 assessed: 10/08/22 Source: Developed by Drs. Reynold LRadha Doran, Aubrey Garcia and colleagues, with an educational shivam from [employer]. Review of Systems Const Denies chills, Denies headache(s) and Denies weight loss ENT Denies headache(s) Card Denies chest pain, Denies syncope, Denies irregular heart rhythm and Denies dyspnea Resp Denies chest congestion, Denies cough and Denies dyspnea GI Denies abdominal pain, Denies change in stool character, Denies nausea and Denies vomiting Musc Denies deformity and Denies joint swelling Neuro Denies syncope and Denies headache(s) Physical exam (Primary Care) Vital Signs: Last Vital Signs Pulse 80 07/21/23 13:57 BP 120/78 07/21/23 13:57 Pulse Ox 98 07/21/23 13:57 Oxygen Delivery Method Room Air 07/21/23 13:57 BMI result Body Mass Index 34.2 Tobacco/Smoking Status: Tobacco use Status Tobacco use date assessed 01/08/23 07/21/23 14:01 Patient Tobacco Use Status Former Tobacco user 07/21/23 14:01 e-Cigarette/Vaping Use Never Used 07/21/23 14:01 Thrive Assessment: Date of Thrive Assessment Date Thrive assessed 10/08/22 07/21/23 14:01 Const General: cooperative, comfortable, no acute distress and alert Neck Neck: Yes no lymphadenopathy Thyroid: Thyroid normal Resp Effort & Inspection: normal respiratory effort Auscultation: clear to auscultation bilaterally Percussion: percussion normal Cardio Jugular venous distension: no JVD Palpation: normal PMI Rate: regular rate Rhythm: regular rhythm Heart sounds: S1 normal heart sound present and S2 normal heart sound present GI Inspection: Yes normal to inspection Palpation (GI): No hepatosplenomegaly present Skin General skin exam: no rashes or lesions noted Extrem General: Yes no clubbing, cyanosis or edema Assessment and Plan Assessment & Plan (1) Hyperlipidemia: Code(s): E78.5 - Hyperlipidemia, unspecified Plan: stable; same rx (2) HTN (hypertension): Code(s): I10 - Essential (primary) hypertension Plan: stable; same rx Orders: Orders Complete Blood Count Auto Diff Today D64.9 - Anemia, unspecified Lipid Panel Today E78.5 - Hyperlipidemia, unspecified Thyroid Stimulating Hormone Today E03.9 - Hypothyroidism, unspecified Comprehensive [place]. Panel Fast Today N28.9 - Disorder of kidney and ureter, unspecified Coding Level of Care Code Tele Est Pt Level 3 (46001) Diagnoses Hyperlipidemia E78.5 HTN (hypertension) I10
== END 2023-07-21 14:08 | disposition home or self-care (01) ==
PROVIDERS: PCP Internal Medicine; Visit Provider Internal Medicine
DX: E78.5 Hyperlipidemia, unspecified (principal); I10 Essential (primary) hypertension
CPT/HCPCS: 99213

== ENCOUNTER 2023-08-25 12:49 | Outpatient (AMB) | payer MEDICARE, SELFPAY ==
[2023-08-25 13:15] VITALS: BP 150/62; PULSE 88; BMI 34.5
--- NOTE | 2023-08-25 13:15 | MHC.OFFVIS ---
Intake Vital Signs 08/25/23 13:15 08/25/23 13:50 Height 5 ft 8 in Weight 227 lb 1.218 oz BMI 34.5 BP 150/62 H 132/68 Blood Pressure Location Lt brachial Lt brachial Position Sitting Sitting Pulse 88 Pulse Source Pulse Oximeter Intake Visit Reasons: F/up NS pt Intake Note: pt its here in the office for a f/up pt states that he its feeling good. Propagation Manager Required: No Accompanied by: Self / Same As Patient Allergies No Known Allergies [No Known Allergies*] Allergy (Verified 07/21/23 13:57) Medication List - Last Reconciled 08/25/23 by Donna Minor NP aspirin (Adult Aspirin Regimen) 81 mg PO DAILY atorvastatin 40 mg PO DAILY lisinopril 20 mg PO DAILY metoprolol succinate ER 100 mg PO DAILY HPI HPI Comments History of Present Illness Details 77-year-old male presents today for a follow-up. He had an episode recently where he got very lightheaded, nauseous, and felt as if he was going to pas out along with chest pain. After vomiting he felt relief but went to the ED for evaluation. He denies chest pains, shortness of breath, or dizziness. ED workup came back without any signfiicant findings but suggested stress test due to history of CAD and having a silent LA. [facility] Medical History Bifascicular block History of prosthetic unicompartmental arthroplasty of both knees Hyperlipidemia HTN (hypertension) CAD (coronary artery disease) Surgical History H/O left knee surgery Family History Father No problems noted. Mother No problems noted. Social History Housing: House Alcohol intake: current Alcohol intake frequency: a few times a month Patient Tobacco Use Status: Former Tobacco user e-Cigarette/Vaping Use: Never Used Second Hand Smoke Exposure: No service: No Current occupational status: retired Cognitive needs: No Hearing needs: No Vision needs: Yes (reading glasses) Review of Systems Const Denies chills, Denies fatigue, Denies fever(s), Denies frequent falls, Denies weakness, Denies weight gain and Denies weight loss ENT Denies dizziness Card Denies chest pain, Denies leg edema, Denies lightheadedness, Denies palpitations, Denies dyspnea and Denies dyspnea on exertion Resp Denies cough, Denies dyspnea and Denies dyspnea on exertion GI Denies hematochezia Musc Denies abnormal gait, Denies muscle weakness, Denies numbness, Denies radiating pain into limb and Denies tingling Neuro Denies abnormal gait, Denies dizziness, Denies frequent falls, Denies numbness, Denies tingling and Denies weakness Endo Denies fatigue and Denies palpitations Physical Exam Vital Signs: Last Vital Signs Pulse 88 08/25/23 13:15 BP 132/68 08/25/23 13:50 BMI result Body Mass Index 34.5 Const General: healthy appearing and no acute distress Orientation/consciousness: patient oriented x3 HEENT Head: Yes normal to inspection Eyes General: appearance normal, both eyes and all related structures Neck Neck: Yes normal visual inspection Chest Chest palpation & inspection: normal inspection of the chest Resp Effort & Inspection: normal respiratory effort Auscultation: clear to auscultation bilaterally Cardio Jugular venous distension: no JVD Palpation: normal PMI Rate: regular rate Rhythm: regular rhythm Heart sounds: S1 normal heart sound present, S2 normal heart sound present, no click, no gallops, no murmurs and no rubs GI Inspection: Yes normal to inspection Palpation (GI): Soft to palpation Skin General skin exam: no rashes or lesions noted Neuro General: patient oriented x3 Extrem General: Yes normal to inspection Psych Appearance: grossly normal Assessment & Plan Assessment & Plan (1) CAD (coronary artery disease): Code(s): I25.10 - Atherosclerotic heart disease of [place] coronary artery without angina pectoris (2) HTN (hypertension): Code(s): I10 - Essential (primary) hypertension Plan Will perform pharmacological stress test with lexiscan to ensure no chages since he has had a silent LA in the past. Continue current medications as present. Seek ED care for symptoms. Orders: Orders CA lexiscan stress w low 08/25/23 I10 - Essential (primary) hypertension, I25.10 - Atherosclerotic heart disease of [place] coronary artery without angina pectoris NM cardiolite stress test 08/25/23 I10 - Essential (primary) hypertension, I25.10 - Atherosclerotic heart disease of [place] coronary artery without angina pectoris Coding Level of Care Code Est Pt Level 3 (47806) Diagnoses CAD (coronary artery disease) I25.10 HTN (hypertension) I10
[2023-08-25 13:50] VITALS: BP 132/68
== END 2023-08-25 13:55 | disposition home or self-care (01) ==
PROVIDERS: PCP Internal Medicine; Visit Provider Nurse Practitioner
DX: I25.10 Atherosclerotic heart disease of native coronary artery without angina pectoris (principal); I10 Essential (primary) hypertension
CPT/HCPCS: 99213

== ENCOUNTER → 2023-08-25 12:49 | Outpatient (BNVA) | payer MEDICARE, SELFPAY | PROVIDERS: PCP Internal Medicine; Visit Provider Nurse Practitioner | DX: I25.10 Atherosclerotic heart disease of native coronary artery without angina pectoris (principal); I10 Essential (primary) hypertension | CPT/HCPCS: 99212 ==

== ENCOUNTER 2024-01-05 07:15 | Outpatient (REF) | payer MEDICARE, SELFPAY ==
[2024-01-05 07:25] LABS: MANUAL DIFF FLAG NO
[2024-01-05 08:14] LABS: Basophils Percent Auto 0.6 % (0-2); Eosinophils Absolute Auto 0.3 X10*3/uL (0.0-0.4); Eosinophils Percent Auto 4.8 % (0-4); Hematocrit 40.3 % (42.0-52.0); Hemoglobin 13.7 g/dl (14.0-18.0); Imm Gran Abs Auto 0.03 X10*3/uL (0.00-0.03); Imm Gran Pct Auto 0.5 % (0.0-0.4); Lymphocytes Absolute Auto 3.6 X10*3/uL (1.2-4.9); Lymphocytes Percent Auto 55.3 % (20-40); Mean Corpuscular Hemoglobin 31.2 pg (27.0-33.0); Mean Corpuscular Volume 91.8 fL (80.0-98.0); Mean Platelet Volume 8.8 fL (9.4-12.4); Monocytes Absolute Auto 0.6 X10*3/uL (0.1-1.2); Monocytes Percent Auto 9.1 % (2-11); Neutrophils Absolute Auto 1.9 x10*3/uL (2.0-8.3); Neutrophils Percent Auto 29.7 % (45-73); Platelet Count 175 X10*3/uL (160-400); Red Blood Count 4.39 X10*6/uL (4.60-5.80); Red Cell Distribution Width 13.2 % (11.0-16.0); White Blood Count 6.5 X10*3/uL (4.8-10.8)
[2024-01-05 09:18] LABS: Alanine Aminotransferase 25 U/L (0-40); Albumin Level 4.1 g/dL (3.5-5.0); Alkaline Phosphatase 51 U/L (39-117); Anion Gap 18 (12-20); Aspartate Amino Transferase 25 U/L (5-37); Bilirubin Total 0.8 mg/dL (0.0-1.0); Blood Urea Nitrogen 28 mg/dL (9-16); Calcium 9.7 mg/dL (8.4-10.2); Carbon Dioxide 21 mmol/L (22-29); Chloride 106 mmol/L (96-108); Cholesterol 182 mg/dL (<200); Estimated Glomerular Filt Rate 46; Glucose Fasting 112 mg/dL (60-99); HDL Cholesterol 42 mg/dL (>40); LDL Cholesterol Calculated 93 mg/dL (<100); Potassium 5.5 mmol/L (3.3-5.1); Sodium 139 mmol/L (135-145); Total Protein 7.4 g/dL (6.5-8.0); Triglycerides 238 mg/dL (<150)
[2024-01-05 09:22] LABS: Thyroid Stimulating Hormone 1.26 uIU/mL (0.32-4.0)
== END 2024-01-05 07:16 | disposition home or self-care (01) ==
LOC: HO.LAB 07:15
PROVIDERS: PCP Internal Medicine; Visit Provider Internal Medicine
DX: E78.5 Hyperlipidemia, unspecified (principal); D64.9 Anemia, unspecified; N28.9 Disorder of kidney and ureter, unspecified; E03.9 Hypothyroidism, unspecified
CPT/HCPCS: 36415; 80053; 80061; 84443; 85025

== ENCOUNTER 2024-02-09 14:01 | Outpatient (AMB) | payer MEDICARE, SELFPAY ==
[2024-02-09 14:12] VITALS: BP 118/70; PULSE 85; O2SAT 97; BMI 33.4
--- NOTE | 2024-02-09 14:12 | MHC.PC.OV ---
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 per policy Accompanied by: Self / Same As Patient Allergies No Known Allergies [No Known Allergies*] Allergy (Verified 02/09/24 14:13) Medication List - Last Reconciled 02/09/24 by Keagan Carbajal MD aspirin (Adult Aspirin Regimen) 81 mg PO DAILY atorvastatin 40 mg PO DAILY lisinopril 20 mg PO DAILY metoprolol succinate ER 100 mg PO DAILY Tobacco use date assessed: 02/09/24 Fall risk assessment: No Falls in past year Last assessed Fall Risk: 02/09/24 Dental Screening Dental Screen Date: 07/21/23 HPI Follow Up HPI Details hypertension on rx; doing well and compliant [facility] Medical History Bifascicular block History of prosthetic unicompartmental arthroplasty of both knees Hyperlipidemia HTN (hypertension) CAD (coronary artery disease) Surgical History H/O left knee surgery Family History Father No problems noted. Mother No problems noted. Social History Housing: House Alcohol intake: current Alcohol intake frequency: a few times a month Patient Tobacco Use Status: Former Tobacco user e-Cigarette/Vaping Use: Never Used Second Hand Smoke Exposure: No service: No Current occupational status: retired Cognitive needs: No Hearing needs: No Vision needs: Yes (reading glasses) Questionnaire PHQ-9 Over the last 2 weeks, how often have you been bothered by any of the following problems? 1. Little interest or pleasure in doing things: not at all 2. Feeling down, depressed, or hopeless: not at all 3. Trouble falling or staying asleep, or sleeping too much: not at all 4. Feeling tired or having little energy: not at all 5. Poor appetite or overeating: not at all 6. Feeling bad about yourself - or that you are a failure or have let yourself or your family down: not at all 7. Trouble concentrating on things, such as reading the newspaper or watching television: not at all 8. Moving or speaking so slowly that other people could have noticed. Or the opposite - being so fidgety or restless that you have been moving around a lot more than usual: not at all Depression Screening Interpretation: Negative Depression Screening Done: Yes Source: Developed by Drs. Reynold Bhagat, Radha Esqueda, Aubrey Garcia and colleagues, with an educational shivam from [employer]. Thrive Questionnaire Date Thrive assessed: 02/09/24 I am a: Patient What is your living situation today?: I have a steady place to live Within the past 12 months, did the food you bought not last and you didn't have the money to get more?: Never true Within the past 12 months, did you worry whether your food would run out before you got money to buy more?: Never true Do you have trouble paying for medicines?: No Do you have trouble getting transportation to medical appointments?: No Do you have trouble paying your heating and electricity bill?: No Do you have trouble taking care of your child, family member or friend?: No Do you have trouble with day-to-day activities such as bathing, preparing meals, shopping, managing finances, etc.?: No Are you currently unemployed and looking for a job?: No Are you interested in more education?: No Please select the resources that you would like help with: None THRIVE Score: 0 AUDIT C Alcohol Use Questionnaire (AUDIT-C) 1. How often do you have a drink containing alcohol?: Monthly or less Total Score: 1 LYNDA-7 AMB Questionnaire LYNDA-7 Date LYNDA - 7 assessed: 02/09/24 Feeling nervous, anxious, or on edge: 0 = Not at all Not being able to stop or control worryin = Not at all Worrying too much about different things: 0 = Not at all Trouble relaxin = Not at all Being so restless that it is hard to sit still: 0 = Not at all Becoming easily annoyed or irritable: 0 = Not at all Feeling afraid as if something awful might happen: 0 = Not at all Total LYNDA-7 score (0-4 normal; 5-9 mild; 10-14 moderate; 15-21 severe): 0 Source: Developed by Drs. Reynold Bhagat, Radha Esqueda, Aubrey Garcia and colleagues, with an educational shivam from [employer]. Review of Systems Const Denies chills, Denies headache(s) and Denies weight loss ENT Denies headache(s) Card Denies chest pain, Denies syncope, Denies irregular heart rhythm and Denies dyspnea Resp Denies chest congestion and Denies dyspnea GI Denies abdominal pain, Denies change in stool character, Denies nausea and Denies vomiting Musc Denies deformity and Denies joint swelling Neuro Denies syncope and Denies headache(s) Physical exam (Primary Care) Vital Signs: Last Vital Signs Pulse 85 02/09/24 14:12 BP 118/70 02/09/24 14:12 Pulse Ox 97 02/09/24 14:12 Oxygen Delivery Method Room Air 02/09/24 14:12 BMI result Body Mass Index 33.4 Tobacco/Smoking Status: Tobacco use Status Tobacco use date assessed 02/09/24 02/09/24 14:13 Patient Tobacco Use Status Former Tobacco user 02/09/24 14:13 e-Cigarette/Vaping Use Never Used 02/09/24 14:13 Depression Screening Interpretation: Negative Thrive Assessment: Date of Thrive Assessment Date Thrive assessed 02/09/24 02/09/24 14:13 Const General: cooperative, comfortable, no acute distress and alert Neck Neck: Yes no lymphadenopathy Thyroid: Thyroid normal Resp Effort & Inspection: normal respiratory effort Auscultation: clear to auscultation bilaterally Percussion: percussion normal Cardio Jugular venous distension: no JVD Palpation: normal PMI Rate: regular rate Rhythm: regular rhythm Heart sounds: S1 normal heart sound present and S2 normal heart sound present GI Inspection: Yes normal to inspection Palpation (GI): No hepatosplenomegaly present Skin General skin exam: no rashes or lesions noted Extrem General: Yes no clubbing, cyanosis or edema Assessment and Plan Assessment & Plan (1) HTN (hypertension): Code(s): I10 - Essential (primary) hypertension Plan: stable; same rx Orders: Orders Lipid Panel Today Z13.220 - Encounter for screening for lipoid disorders XR chest 2V Today R05.9 - Cough, unspecified Coding Level of Care Code Est Pt Level 3 (82145) Diagnoses HTN (hypertension) I10
== END 2024-02-09 14:27 | disposition home or self-care (01) ==
PROVIDERS: PCP Internal Medicine; Visit Provider Internal Medicine
DX: I10 Essential (primary) hypertension (principal)
CPT/HCPCS: 99213

== ENCOUNTER 2024-02-09 14:36 | Outpatient (REF) | payer MEDICARE, SELFPAY ==
--- NOTE | ~2024-02-09 | XR_ITS ---
EXAMINATION: XR CHEST CLINICAL INFORMATION: Cough. COMPARISON: None available. TECHNIQUE: 2 views of the chest were obtained. FINDINGS: No significant abnormality is noted involving the heart, lungs, mediastinum, or soft tissues. Degenerative changes of the spine. XR/XR chest 2V IMPRESSION: No acute finding.
== END 2024-02-09 14:37 | disposition home or self-care (01) ==
LOC: HO.XRAY 14:36
PROVIDERS: PCP Internal Medicine; Visit Provider Internal Medicine
DX: R05.9 Cough, unspecified (principal)
CPT/HCPCS: 71046

== ENCOUNTER 2024-05-31 14:04 | Outpatient (AMB) | payer MEDICARE, SELFPAY ==
[2024-05-31 14:12] VITALS: BP 120/70; PULSE 87; BMI 34.3
--- NOTE | 2024-05-31 14:12 | MHC.OFFVIS ---
Vital Signs 05/31/24 14:12 Height 5 ft 8 in Weight 225 lb 4.999 oz BMI 34.3 BP 120/70 Blood Pressure Location Lt brachial Position Sitting Pulse 87 Intake Visit Reasons: 1 year fu Intake Note: 1yr f/u. Pt feeling gppd overall. Executive Staff Assistant Required: No Accompanied by: Self / Same As Patient Allergies No Known Allergies [No Known Allergies*] Allergy (Verified 02/09/24 14:13) Medication List - Last Reconciled 05/31/24 by Juan Ledesma MD aspirin (Adult Aspirin Regimen) 81 mg PO DAILY atorvastatin 40 mg PO DAILY doxycycline hyclate 50 mg PO BID lisinopril 20 mg PO DAILY metoprolol succinate ER 100 mg PO DAILY HPI Comments Details: Oscar comes for follow-up. He has been doing very well from cardiac perspective. He said he remains very active and denies any symptoms of exertional chest pain or shortness of breath. Able to rake leaves, mowed lawn. Manages his home. Takes all his medications. Denies any heart failure symptoms. Denies any lightheadedness, syncope. [facility] Medical History Bifascicular block History of prosthetic unicompartmental arthroplasty of both knees Hyperlipidemia HTN (hypertension) CAD (coronary artery disease) Surgical History H/O left knee surgery Family History Father No problems noted. Mother No problems noted. Social History Housing: House Alcohol intake: current Alcohol intake frequency: a few times a month Patient Tobacco Use Status: Former Tobacco user e-Cigarette/Vaping Use: Never Used Second Hand Smoke Exposure: No service: No Current occupational status: retired Cognitive needs: No Hearing needs: No Vision needs: Yes (reading glasses) Review of Systems Const Denies chills, Denies fatigue, Denies fever(s), Denies weight gain and Denies weight loss ENT Denies dizziness Card Denies chest pain, Denies leg edema, Denies lightheadedness, Denies palpitations, Denies dyspnea on exertion, Denies orthopnea and Denies other Resp Denies cough and Denies dyspnea on exertion GI Denies hematochezia and Denies change in stool character Musc Denies abnormal gait, Denies muscle weakness, Denies numbness, Denies radiating pain into limb and Denies tingling Neuro Denies abnormal gait, Denies dizziness, Denies numbness and Denies tingling Endo Denies fatigue and Denies palpitations Physical Exam Vital Signs: Last Vital Signs Pulse 87 05/31/24 14:12 BP 120/70 05/31/24 14:12 BMI result Body Mass Index 34.3 Const General: cooperative, comfortable, no acute distress and alert Nutritional Appearance: obese Orientation/consciousness: patient oriented x3 Limitations: no limitations HEENT Head: Yes normal to inspection, Yes normocephalic and Yes atraumatic Eyes General: appearance normal, both eyes and all related structures Neck Neck: Yes normal visual inspection, Yes trachea midline and Yes supple Carotids: other ( No carotid bruit) Chest Chest palpation & inspection: normal inspection of the chest Resp Effort & Inspection: normal respiratory effort Auscultation: clear to auscultation bilaterally Cardio Jugular venous distension: no JVD Palpation: normal PMI Rate: regular rate Rhythm: regular rhythm Heart sounds: S1 normal heart sound present, S2 normal heart sound present and Other heart sounds present ( S4 present) Peripheral pulses: Peripheral pulses 2+ throughout GI Inspection: Yes obesity Auscultation: normal bowel sounds Skin General skin exam: no rashes or lesions noted and ecchymosis Neuro General: patient oriented x3 and no focal motor deficits Extrem General: Yes no clubbing, cyanosis or edema Psych Appearance: grossly normal Office Procedures EKG Details: EKG shows normal sinus rhythm with right bundle-branch block and inferior infarct [id number]-[id number], Complete Assessment & Plan Assessment & Plan (1) CAD (coronary artery disease): Code(s): I25.10 - Atherosclerotic heart disease of [place] coronary artery without angina pectoris Category: Medical Plan: Coronary artery disease with what appears to be inferior infarct which appears to be silent myocardial infarction. Currently has no exertional symptoms whatsoever. High likelihood of underlying coronary disease although given lack of symptoms unless he has worsening LV ejection fraction will pursue conservative and medical therapy at this point time. If he has reduction LV EF will require cardiac catheterization. This was discussed with him. He understands agrees. Continue low-dose aspirin therapy for life. Continue high-intensity statin therapy with target goal LDL closer to 60 mg/dL. Continue aggressive blood pressure control. Will obtain echocardiogram in near future. Further management based on the findings of the echocardiogram. (2) HTN (hypertension): Code(s): I10 - Essential (primary) hypertension Category: Medical Plan: Hypertension which is currently well optimized advised to monitor blood pressure at home maintain a log. Goal blood pressure less than 130/84. Low-salt diet was discussed. Importance of good blood pressure control was discussed. Understands agrees. Advised to maintain activity level as tolerated. Will follow up in the clinic in 1 year's time, sooner p.r.n.. Thank you for allowing me to partake in his care Orders: Orders CA echo transthoracic complete Today I25.10 - Atherosclerotic heart disease of [place] coronary artery without angina pectoris Coding Level of Care Code Est Pt Level 4 (93577) Diagnoses CAD (coronary artery disease) I25.10 HTN (hypertension) I10 CPT Codes EKG - CPT: 64602-[id number], Complete ([id number])
== END 2024-05-31 14:39 | disposition home or self-care (01) ==
PROVIDERS: PCP Internal Medicine; Visit Provider Internal Medicine Cardiovascular Disease
DX: I25.10 Atherosclerotic heart disease of native coronary artery without angina pectoris (principal); I10 Essential (primary) hypertension
CPT/HCPCS: 93010; 99214

== ENCOUNTER → 2024-05-31 14:04 | Outpatient (BNVA) | payer MEDICARE, SELFPAY | PROVIDERS: PCP Internal Medicine; Visit Provider Internal Medicine Cardiovascular Disease | DX: I25.10 Atherosclerotic heart disease of native coronary artery without angina pectoris (principal); I10 Essential (primary) hypertension | CPT/HCPCS: 93005; 99212 ==

== ENCOUNTER 2024-06-15 08:02 | Outpatient (REF) | payer MEDICARE, SELFPAY ==
[2024-06-15 08:28] LABS: MANUAL DIFF FLAG NO
[2024-06-15 09:04] LABS: Basophils Percent Auto 0.5 % (0-2); Eosinophils Absolute Auto 0.2 X10*3/uL (0.0-0.4); Eosinophils Percent Auto 4.2 % (0-4); Hematocrit 44.6 % (42.0-52.0); Hemoglobin 14.9 g/dl (14.0-18.0); Imm Gran Abs Auto 0.03 X10*3/uL (0.00-0.03); Imm Gran Pct Auto 0.5 % (0.0-0.4); Lymphocytes Absolute Auto 2.3 X10*3/uL (1.2-4.9); Lymphocytes Percent Auto 41.1 % (20-40); Mean Corpuscular HGB Conc 33.4 g/dl (31.0-36.0); Mean Corpuscular Hemoglobin 31.2 pg (27.0-33.0); Mean Corpuscular Volume 93.5 fL (80.0-98.0); Monocytes Absolute Auto 0.6 X10*3/uL (0.1-1.2); Monocytes Percent Auto 10.9 % (2-11); Neutrophils Absolute Auto 2.4 x10*3/uL (2.0-8.3); Neutrophils Percent Auto 42.8 % (45-73); Platelet Count 156 X10*3/uL (160-400); Red Blood Count 4.77 X10*6/uL (4.60-5.80); Red Cell Distribution Width 12.2 % (11.0-16.0); White Blood Count 5.5 X10*3/uL (4.8-10.8)
[2024-06-15 09:54] LABS: Alanine Aminotransferase 23 U/L (0-40); Albumin Level 4.2 g/dL (3.5-5.0); Alkaline Phosphatase 49 U/L (39-117); Anion Gap 19 (12-20); Aspartate Amino Transferase 24 U/L (5-37); Bilirubin Total 0.7 mg/dL (0.0-1.0); Blood Urea Nitrogen 15 mg/dL (9-16); Calcium 9.9 mg/dL (8.4-10.2); Carbon Dioxide 25 mmol/L (22-29); Chloride 104 mmol/L (96-108); Cholesterol 202 mg/dL (<200); Estimated Glomerular Filt Rate > 60; Glucose Fasting 140 mg/dL (60-99); HDL Cholesterol 50 mg/dL (>40); LDL Cholesterol Calculated 116 mg/dL (<100); Potassium 5.7 mmol/L (3.3-5.1); Sodium 142 mmol/L (135-145); Thyroid Stimulating Hormone 0.58 uIU/mL (0.32-4.0); Total Protein 7.2 g/dL (6.5-8.0); Triglycerides 180 mg/dL (<150)
== END 2024-06-15 08:03 | disposition home or self-care (01) ==
LOC: HO.LAB 08:02
PROVIDERS: PCP Internal Medicine; Visit Provider Internal Medicine
DX: D64.9 Anemia, unspecified (principal); E03.9 Hypothyroidism, unspecified; N28.9 Disorder of kidney and ureter, unspecified; Z13.220 Encounter for screening for lipoid disorders
CPT/HCPCS: 36415; 80053; 80061; 84443; 85025

== ENCOUNTER 2024-06-21 11:29 | Outpatient (AMB) | payer MEDICARE, SELFPAY ==
--- NOTE | 2024-06-21 11:30 | A.OFFPC_ITS ---
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 Required: No Accompanied by: Self / Same As Patient Allergies No Known Allergies [No Known Allergies*] Allergy (Verified 06/21/24 11:32) Medication List - Last Reconciled 06/21/24 by Keagan Carbajal MD aspirin (Adult Aspirin Regimen) 81 mg PO DAILY atorvastatin 40 mg PO DAILY doxycycline hyclate 50 mg PO BID lisinopril 20 mg PO DAILY metoprolol succinate ER 100 mg PO DAILY Tobacco use date assessed: 06/21/24 Fall risk assessment: No Falls in past year Last assessed Fall Risk: 06/21/24 Dental Screening Dental Screen Date: 06/21/24 Did you have a dental visit in the last 12 months?: No Did you have a dental problem in the last 6 months where you did not have access to dental care?: No Was dental information given to patient?: No HPI 3MoFollowUp HPI Details HTN on Rx; doing well and compliant [facility] Medical History Bifascicular block History of prosthetic unicompartmental arthroplasty of both knees Hyperlipidemia HTN (hypertension) CAD (coronary artery disease) Surgical History H/O left knee surgery Family History Father No problems noted. Mother No problems noted. Social History Housing: House Alcohol intake: current Alcohol intake frequency: a few times a month Patient Tobacco Use Status: Former Tobacco user e-Cigarette/Vaping Use: Never Used Second Hand Smoke Exposure: No service: No Current occupational status: retired Cognitive needs: No Hearing needs: No Vision needs: Yes (reading glasses) Questionnaire PHQ-9 Over the last 2 weeks, how often have you been bothered by any of the following problems? 1. Little interest or pleasure in doing things: not at all 2. Feeling down, depressed, or hopeless: not at all 3. Trouble falling or staying asleep, or sleeping too much: not at all 4. Feeling tired or having little energy: not at all 5. Poor appetite or overeating: not at all 6. Feeling bad about yourself - or that you are a failure or have let yourself or your family down: not at all 7. Trouble concentrating on things, such as reading the newspaper or watching television: not at all 8. Moving or speaking so slowly that other people could have noticed. Or the opposite - being so fidgety or restless that you have been moving around a lot more than usual: not at all Depression Screening Interpretation: Negative Depression Screening Done: Yes Source: Developed by Drs. Reynold Bhagat, Radha Esqueda, Aubrey Garcia and colleagues, with an educational shivam from [employer] Thrive Questionnaire Date Thrive assessed: 06/21/24 I am a: Patient What is your living situation today?: I have a steady place to live Within the past 12 months, did the food you bought not last and you didn't have the money to get more?: Never true Within the past 12 months, did you worry whether your food would run out before you got money to buy more?: Never true Do you have trouble paying for medicines?: No Do you have trouble getting transportation to medical appointments?: No Do you have trouble paying your heating and electricity bill?: No Do you have trouble taking care of your child, family member or friend?: No Do you have trouble with day-to-day activities such as bathing, preparing meals, shopping, managing finances, etc.?: No Are you currently unemployed and looking for a job?: No Are you interested in more education?: No Please select the resources that you would like help with: None Currently or been in a relationship where the following occur: No concerns reported THRIVE Score: 0 AUDIT C Alcohol Use Questionnaire (AUDIT-C) 1. How often do you have a drink containing alcohol?: Monthly or less Total Score: 1 LYNDA-7 AMB Questionnaire LYNDA-7 Date LYNDA - 7 assessed: 06/21/24 Feeling nervous, anxious, or on edge: 0 = Not at all Not being able to stop or control worryin = Not at all Worrying too much about different things: 0 = Not at all Trouble relaxin = Not at all Being so restless that it is hard to sit still: 0 = Not at all Becoming easily annoyed or irritable: 0 = Not at all Feeling afraid as if something awful might happen: 0 = Not at all Total LYNDA-7 score (0-4 normal; 5-9 mild; 10-14 moderate; 15-21 severe): 0 Source: Developed by Drs. Reynold Bhagat, Radha Esqueda, Aubrey Garcia and colleagues, with an educational shivam from [employer] Review of Systems Const Denies chills, Denies headache(s) and Denies weight loss ENT Denies headache(s) Card Denies chest pain, Denies syncope, Denies irregular heart rhythm and Denies dyspnea Resp Denies chest congestion, Denies cough and Denies dyspnea GI Denies abdominal pain, Denies change in stool character, Denies nausea and Denies vomiting Musc Denies deformity and Denies joint swelling Neuro Denies syncope and Denies headache(s) Physical exam (Primary Care) Vital Signs: Last Vital Signs Pulse 84 06/21/24 11:32 BP 132/84 06/21/24 11:32 Pulse Ox 98 06/21/24 11:32 Oxygen Delivery Method Room Air 06/21/24 11:32 BMI result Body Mass Index 34.2 Tobacco/Smoking Status: Tobacco use Status Tobacco use date assessed 06/21/24 06/21/24 11:35 Patient Tobacco Use Status Former Tobacco user 06/21/24 11:32 e-Cigarette/Vaping Use Never Used 06/21/24 11:32 Depression Screening Interpretation: Negative Thrive Assessment: Date of Thrive Assessment Date Thrive assessed 06/21/24 06/21/24 11:35 Currently or been in a relationship where the following occur: No concerns reported Const General: cooperative, comfortable, no acute distress and alert Neck Neck: Yes no lymphadenopathy Thyroid: Thyroid normal Resp Effort & Inspection: normal respiratory effort Auscultation: clear to auscultation bilaterally Percussion: percussion normal Cardio Jugular venous distension: no JVD Palpation: normal PMI Rate: regular rate Rhythm: regular rhythm Heart sounds: S1 normal heart sound present and S2 normal heart sound present GI Inspection: Yes normal to inspection Palpation (GI): No hepatosplenomegaly present Skin General skin exam: no rashes or lesions noted Extrem General: Yes no clubbing, cyanosis or edema Coding Level of Care Code Est Pt Level 3 (52089) Diagnoses HTN (hypertension) I10 Assessment & Plan Assessment & Plan (1) HTN (hypertension): Code(s): I10 - Essential (primary) hypertension Category: Medical Plan: stable; same rx
[2024-06-21 11:32] VITALS: BP 132/84; PULSE 84; O2SAT 98; BMI 34.2
== END 2024-06-21 11:49 | disposition home or self-care (01) ==
PROVIDERS: PCP Internal Medicine; Visit Provider Internal Medicine
DX: I10 Essential (primary) hypertension (principal)

== ENCOUNTER → 2024-06-21 11:29 | Outpatient (BNVA) | payer MEDICARE, SELFPAY | PROVIDERS: PCP Internal Medicine; Visit Provider Internal Medicine | DX: I10 Essential (primary) hypertension (principal) | CPT/HCPCS: 96127; 99212 ==

== ENCOUNTER → 2024-07-26 08:50 | Outpatient (REF) | payer MEDICARE, SELFPAY ==
--- NOTE | 2024-07-26 08:53 | CA_ITS ---
Transthoracic Echocardiogram Patient (Last, First, Middle): Oscar Chao A Gender: Male Date of : 1945 Age: 78 Procedure Date: 07/26/2024 Procedure Type: Transthoracic Echocardiogram Location: OP Height: 180.34 cm Weight: 99.79 kg BSA: 2.20 m2 Heart Rate: bpm BP: 130 / 82 mmHg Water Inspector: TO Referring MD: Juan Ledesma MD Symptoms: I25.10 - Atherosclerotic heart disease of [place] coronary artery without... Study Quality: Technically Difficult/Contrast ECG Rhythm: Sinus Conclusions: - The left ventricular systolic function is normal. The visually estimated ejection fraction is between 55-60%. - Aortic valve appears calcified and possibly bicuspid (difficult to assess). No aortic stenosis. - There is mild dilatation of the ascending aorta measuring 4.10 cm. Findings Procedure Information Contrast agent, definity, is being given per protocol without apparent complications. Left Ventricle Normal left ventricular cavity size. There is normal left ventricular wall thickness. The left ventricular systolic function is normal. The visually estimated ejection fraction is between 55-60%. Regional wall motion abnormalities can not be excluded due to suboptimal endocardial definition. Evidence suggests grade I (mild) diastolic dysfunction. There is moderate septal and moderate basal asymmetric hypertrophy. Right Ventricle Normal right ventricular cavity size and systolic function. Atria Both atria are normal in size. Aortic Valve There is no aortic valve stenosis. There is no aortic valve regurgitation. Aortic valve appears calcified and possibly bicuspid. Mitral Valve There is mild anterior mitral leaflet thickening. There is no mitral valve regurgitation. There is no mitral valve stenosis. Pulmonic Valve The pulmonic valve is likely normal. Tricuspid Valve There is trace tricuspid valve regurgitation. There is no evidence of pulmonary hypertension. Great Vessels The desc aorta is normal in size. There is mild dilatation of the ascending aorta measuring 4.10 cm. Venous The inferior vena cava was not well visualized. The inferior vena cava is normal in size. Pericardium/Pleural There is no evidence of pericardial effusion. Prior Study Comparison No significant change compared to prior study dated: 06/04/2022. Wall motion not clearly assessed, especially area of interest in the inferior wall. Measurements 2D Linear Measurements IVSd: 1.49 0.6-0.9/0.6-1.0 cm LVIDd: 3.74 3.9-5.3/4.2-5.9 cm LVIDd Index: 1.70 2.4-3.2/2.2-3.1 cm/m2 LVIDs: 2.94 2.0-3.6 cm LVPWd: 1.04 0.7-1.1 cm LA Diam: 2.70 2.7-3.8/3.0-4.0 cm LAIDs Index: 1.23 1.5-2.3 cm/m2 LV Mass: 201.95 67-162/88-224 g LV Mass Index: 91.79 43-95/49-115 g/m2 LVOT Diam: 2.40 3.0+(-)1.3 cm 2D Systolic Function EF 4C: 56.70 >55% Mitral Valve MV Pk E: 0.45 MV PK A: 0.69 MV Decel Time: 127.00 E/A: 0.70 E'Lateral: 3.81 E'Medial: 3.70 E/E' Med: 12.20 E/E' Lat: 11.80 PHT: 37.00 MVA PHT: 5.95 [place]: 3.56 Aortic Valve AoV Pk Chris: 1.45 AoV Mn Chris: 1.07 AoV VTI: 0.26 AoV Pk Grad: 8.00 Aov Mn Grad: 5.00 JUSTINO Cont.VTI: 2.71 LVOT LVOT Pk Chris: 0.92 LVOT Mn Chris: 0.58 LVOT VTI: 0.16 LVOT Pk Grad: 3.00 LVOT Mn Grad: 2.00 LVOT Diam: 2.40 LVOT Area: 4.52 Diastolic Function MV Pk E: 0.45 MV Pk A: 0.69 E/A: 0.70 E'Medial: 3.70 E/E' Med: 12.20 E' Laterial: 3.81 E/E' Lat: 11.80 Right Ventricle TAPSE (mm): 17.80 TVS' Chris: 11.70 Tricuspid Valve RA Press: 3.00 Great Vessels Aorta Sinus of Valsalva: 3.77 2.0-3.[address] [place]: 2.83 1.7-3.4 cm Ao Asc: 4.10 2.1-3.4 cm Ao Arch: 3.40 Updated in Other Vendor System with Status of Final Estevan Aiken MD electronically signed on 07/28/2024 10:41:17 AM with status of Final
== END ==
LOC: HO.CARD 08:50
PROVIDERS: PCP Internal Medicine; Visit Provider Internal Medicine Cardiovascular Disease
DX: I25.10 Atherosclerotic heart disease of native coronary artery without angina pectoris (principal)
CPT/HCPCS: 93306; Q9957

== ENCOUNTER → 2024-07-26 08:53 | Outpatient (BNV) | payer MEDICARE, SELFPAY | PROVIDERS: PCP Internal Medicine; Visit Provider Internal Medicine | DX: I35.8 Other nonrheumatic aortic valve disorders (principal); I42.2 Other hypertrophic cardiomyopathy; I25.10 Atherosclerotic heart disease of native coronary artery without angina pectoris | CPT/HCPCS: 93306 ==

== ENCOUNTER 2024-09-14 07:45 | Outpatient (REF) | payer MEDICARE, SELFPAY ==
[2024-09-14 08:42] LABS: Cholesterol 209 mg/dL (<200); HDL Cholesterol 47 mg/dL (>40); LDL Cholesterol Calculated 89 mg/dL (<100); Triglycerides 368 mg/dL (<150)
== END 2024-09-14 07:46 | disposition home or self-care (01) ==
LOC: HO.LAB 07:45
PROVIDERS: PCP Internal Medicine; Visit Provider Internal Medicine
DX: E78.5 Hyperlipidemia, unspecified (principal)
CPT/HCPCS: 36415; 80061

== ENCOUNTER 2024-09-20 13:14 | Outpatient (AMB) | payer MEDICARE, SELFPAY ==
--- NOTE | 2024-09-20 13:27 | MHC.PC.OV ---
Vital Signs 09/20/24 13:28 Height 5 ft 8 in Weight 224 lb 8 oz BMI 34.1 BP 128/64 Blood Pressure Location Lt brachial Position Sitting Pulse 81 Pulse Source Pulse Oximeter Temp 97.1 F Temp Source Temporal Artery Scan Pulse Oximetry (%) 98 Oxygen Delivery Method Room Air Intake Visit Reasons: 3 month f/u Intake Note: Patient is here to follow up on HTN, CAD, HLD. Mussel Opener Required: No Director Of Radio Services: Not Required per policy Accompanied by: Self / Same As Patient Allergies No Known Allergies [No Known Allergies*] Allergy (Verified 09/20/24 13:28) Medication List - Last Reconciled 09/21/24 by Keagan Carbajal MD aspirin (Adult Aspirin Regimen) 81 mg PO DAILY atorvastatin 40 mg PO DAILY lisinopril 20 mg PO DAILY metoprolol succinate ER 100 mg PO DAILY Tobacco use date assessed: 09/20/24 Fall risk assessment: No Falls in past year Last assessed Fall Risk: 09/20/24 Dental Screening Dental Screen Date: 09/20/24 Did you have a dental visit in the last 12 months?: No Did you have a dental problem in the last 6 months where you did not have access to dental care?: No Was dental information given to patient?: No HPI 3 month f/u HPI Details HTN and hyperlipidemia on rx; compliant [facility] Medical History Bifascicular block History of prosthetic unicompartmental arthroplasty of both knees Hyperlipidemia HTN (hypertension) CAD (coronary artery disease) Surgical History H/O left knee surgery Family History Father No problems noted. Mother No problems noted. Social History Housing: House Alcohol intake: current Alcohol intake frequency: a few times a month Patient Tobacco Use Status: Former Tobacco user e-Cigarette/Vaping Use: Never Used Second Hand Smoke Exposure: Yes service: No Current occupational status: retired Cognitive needs: No Hearing needs: No Vision needs: Yes (reading glasses) Questionnaire PHQ-9 Over the last 2 weeks, how often have you been bothered by any of the following problems? 1. Little interest or pleasure in doing things: not at all 2. Feeling down, depressed, or hopeless: not at all 3. Trouble falling or staying asleep, or sleeping too much: not at all 4. Feeling tired or having little energy: not at all 5. Poor appetite or overeating: not at all 6. Feeling bad about yourself - or that you are a failure or have let yourself or your family down: not at all 7. Trouble concentrating on things, such as reading the newspaper or watching television: not at all 8. Moving or speaking so slowly that other people could have noticed. Or the opposite - being so fidgety or restless that you have been moving around a lot more than usual: not at all 9. Thoughts that you would be better off or of hurting yourself in some way: not at all Total score: 0 Depression Screening Interpretation: Negative Depression Screening Done: Yes Source: Developed by Drs. Reynold Bhagat, Radha Esqueda, Aubrey Garcia and colleagues, with an educational shivam from [employer]. Thrive Questionnaire Date Thrive assessed: 09/20/24 I am a: Patient What is your living situation today?: I have a steady place to live Within the past 12 months, did the food you bought not last and you didn't have the money to get more?: Never true Within the past 12 months, did you worry whether your food would run out before you got money to buy more?: Never true Do you have trouble paying for medicines?: No Do you have trouble getting transportation to medical appointments?: No Do you have trouble paying your heating and electricity bill?: No Do you have trouble taking care of your child, family member or friend?: No Do you have trouble with day-to-day activities such as bathing, preparing meals, shopping, managing finances, etc.?: No Are you currently unemployed and looking for a job?: No Are you interested in more education?: No Please select the resources that you would like help with: None Currently or been in a relationship where the following occur: No concerns reported THRIVE Score: 0 AUDIT C Alcohol Use Questionnaire (AUDIT-C) 1. How often do you have a drink containing alcohol?: Monthly or less 2. How many drinks containing alcohol do you have on a typical day when you are drinking?: 1 or 2 Total Score: 1 LYNDA-7 AMB Questionnaire LYNDA-7 Date LYNDA - 7 assessed: 09/20/24 Feeling nervous, anxious, or on edge: 0 = Not at all Not being able to stop or control worryin = Not at all Worrying too much about different things: 0 = Not at all Trouble relaxin = Not at all Being so restless that it is hard to sit still: 0 = Not at all Becoming easily annoyed or irritable: 0 = Not at all Feeling afraid as if something awful might happen: 0 = Not at all Total LYNDA-7 score (0-4 normal; 5-9 mild; 10-14 moderate; 15-21 severe): 0 Source: Developed by Drs. Reynold Bhagat, Radha Esqueda, Aubrey Garcia and colleagues, with an educational shivam from [employer]. Review of Systems Const Denies chills, Denies headache(s) and Denies weight loss ENT Denies headache(s) Card Denies chest pain, Denies syncope, Denies irregular heart rhythm and Denies dyspnea Resp Denies chest congestion, Denies cough and Denies dyspnea GI Denies abdominal pain, Denies change in stool character, Denies nausea and Denies vomiting Musc Denies deformity and Denies joint swelling Neuro Denies syncope and Denies headache(s) Physical exam (Primary Care) Vital Signs: Last Vital Signs Temp 97.1 F 09/20/24 13:28 Pulse 81 09/20/24 13:28 BP 128/64 09/20/24 13:28 Pulse Ox 98 09/20/24 13:28 Oxygen Delivery Method Room Air 09/20/24 13:28 BMI result Body Mass Index 34.1 Tobacco/Smoking Status: Tobacco use Status Tobacco use date assessed 09/20/24 09/20/24 13:32 Patient Tobacco Use Status Former Tobacco user 09/20/24 13:32 e-Cigarette/Vaping Use Never Used 09/20/24 13:32 PHQ-9: PHQ-9 Score PHQ-9: Total score 0 09/20/24 13:32 Depression Screening Interpretation: Negative Thrive Assessment: Date of Thrive Assessment Date Thrive assessed 09/20/24 09/20/24 13:32 Currently or been in a relationship where the following occur: No concerns reported Const General: cooperative, comfortable, no acute distress and alert Neck Neck: Yes no lymphadenopathy Thyroid: Thyroid normal Resp Effort & Inspection: normal respiratory effort Auscultation: clear to auscultation bilaterally Percussion: percussion normal Cardio Jugular venous distension: no JVD Palpation: normal PMI Rate: regular rate Rhythm: regular rhythm Heart sounds: S1 normal heart sound present and S2 normal heart sound present GI Inspection: Yes normal to inspection Palpation (GI): No hepatosplenomegaly present Skin General skin exam: no rashes or lesions noted Extrem General: Yes no clubbing, cyanosis or edema Coding Level of Care Code Est Pt Level 3 (27271) Diagnoses Hyperlipidemia E78.5 HTN (hypertension) I10 Assessment & Plan Assessment & Plan (1) Hyperlipidemia: Code(s): E78.5 - Hyperlipidemia, unspecified Category: Medical Plan: stable; same rx (2) HTN (hypertension): Code(s): I10 - Essential (primary) hypertension Category: Medical Plan: stable; same rx
[2024-09-20 13:28] VITALS: BP 128/64; PULSE 81; TEMP 36.2; O2SAT 98; BMI 34.1
== END 2024-09-20 13:43 | disposition home or self-care (01) ==
PROVIDERS: PCP Internal Medicine; Visit Provider Internal Medicine
DX: E78.5 Hyperlipidemia, unspecified (principal); I10 Essential (primary) hypertension

== ENCOUNTER → 2024-09-20 13:14 | Outpatient (BNVA) | payer MEDICARE, SELFPAY | PROVIDERS: PCP Internal Medicine; Visit Provider Internal Medicine | DX: E78.5 Hyperlipidemia, unspecified (principal); I10 Essential (primary) hypertension | CPT/HCPCS: 99212 ==

== ENCOUNTER 2025-01-04 13:22 | Outpatient (AMB) | payer MEDICARE, SELFPAY ==
--- NOTE | 2025-01-04 13:47 | A.OFFPC_ITS ---
Vital Signs 01/04/25 13:48 Height 5 ft 8 in Weight 227 lb 9.6 oz BMI 34.6 BP 122/86 Blood Pressure Location Lt brachial Position Sitting Respiration 18 Pulse 82 Pulse Source Pulse Oximeter Temp 98.9 F Temp Source Oral Pulse Oximetry (%) 96 Oxygen Delivery Method Room Air Intake Visit Reasons: Transfer from [facility] f[facility]u Lamp Shade Sewer Required: No Accompanied by: Self / Same As Patient Allergies No Known Allergies (No Known Allergies*) Allergy (Verified 01/04/25 13:57) Medication List - Last Reconciled 01/04/25 by MARY Avila aspirin (Adult Aspirin Regimen) 81 mg PO DAILY atorvastatin 40 mg PO DAILY lisinopril 20 mg PO DAILY metoprolol succinate ER 100 mg PO DAILY Tobacco use date assessed: 01/04/25 Fall risk assessment: No Falls in past year Last assessed Fall Risk: 01/04/25 Dental Screening Dental Screen Date: 01/04/25 Did you have a dental visit in the last 12 months?: No Did you have a dental problem in the last 6 months where you did not have access to dental care?: No Was dental information given to patient?: No HPI Transfer from [facility] f[facility]u HPI Details The patient is 79 year old male presenting to transition from Dr. Carbajal, who retired. He is presenting with chronic disease management needs related to Coronary Artery Disease, Hypercholesterolemia, and Essential Hypertension. He has been under continuous monitoring by Dr. Ramires, with regular bloodwork conducted every three months. His coronary artery disease requires close vigilance over lipid panels and blood pressure. His past labs indicate an increase in triglycerides, total cholesterol, and a decreased and LDL from 116-89. Per Cardiology note the patient goal of LDL a 60 mg/dl for optimal management of his CAD. No side effects from atorvastatin have been reported, although he experiences a knee issue unrelated to the medication. Blood pressure readings have consistently been good, partly due to lifestyle modifications such as reducing salt intake and maintaining a healthy diet with regular consumption of greens. The patient's potassium level shows a slight elevation, with dietary intake not entirely pinpointed to a specific cause, given that his banana consumption is minimal. These factors highlight his ongoing adherence to management strategies while noting some areas for continued focus. [facility] Medical History Bifascicular block History of prosthetic unicompartmental arthroplasty of both knees Hyperlipidemia HTN (hypertension) CAD (coronary artery disease) Surgical History H/O left knee surgery Family History Father No problems noted. Mother No problems noted. Social History Housing: House Alcohol intake: current Alcohol intake frequency: a few times a month Patient Tobacco Use Status: Former Tobacco user e-Cigarette/Vaping Use: Never Used Second Hand Smoke Exposure: Yes service: No Current occupational status: retired Cognitive needs: No Hearing needs: No Vision needs: Yes (Glasses) Questionnaire PHQ-9 Over the last 2 weeks, how often have you been bothered by any of the following problems? 1. Little interest or pleasure in doing things: more than half the days 2. Feeling down, depressed, or hopeless: more than half the days 3. Trouble falling or staying asleep, or sleeping too much: not at all 4. Feeling tired or having little energy: not at all 5. Poor appetite or overeating: not at all 6. Feeling bad about yourself - or that you are a failure or have let yourself or your family down: more than half the days 7. Trouble concentrating on things, such as reading the newspaper or watching television: not at all 8. Moving or speaking so slowly that other people could have noticed. Or the opposite - being so fidgety or restless that you have been moving around a lot more than usual: not at all 9. Thoughts that you would be better off or of hurting yourself in some way: not at all Total score: 6 Depression Screening Interpretation: Negative Depression Screening Done: Yes 16333 - PHQ-9 Billing: Yes Source: Developed by Drs. Reynold Bhagat, Radha Esqueda, Aubrey Garcia and colleagues, with an educational shivam from [employer]. Thrive Questionnaire Date Thrive assessed: 01/04/25 I am a: Patient What is your living situation today?: I have a steady place to live Within the past 12 months, did the food you bought not last and you didn't have the money to get more?: Never true Within the past 12 months, did you worry whether your food would run out before you got money to buy more?: Never true Do you have trouble paying for medicines?: No Do you have trouble getting transportation to medical appointments?: No Do you have trouble paying your heating and electricity bill?: No Do you have trouble taking care of your child, family member or friend?: No Do you have trouble with day-to-day activities such as bathing, preparing meals, shopping, managing finances, etc.?: No Are you currently unemployed and looking for a job?: Yes Are you interested in more education?: No Please select the resources that you would like help with: None Currently or been in a relationship where the following occur: No concerns reported THRIVE Score: 0 AUDIT C Alcohol Use Questionnaire (AUDIT-C) 1. How often do you have a drink containing alcohol?: Never Total Score: 0 Score Reviewed/Action Taken: No LYNDA-7 AMB Questionnaire LYNDA-7 Date LYNDA - 7 assessed: 01/04/25 Feeling nervous, anxious, or on edge: 0 = Not at all Not being able to stop or control worryin = Not at all Worrying too much about different things: 0 = Not at all Trouble relaxin = Not at all Being so restless that it is hard to sit still: 0 = Not at all Becoming easily annoyed or irritable: 0 = Not at all Feeling afraid as if something awful might happen: 0 = Not at all Total LYNDA-7 score (0-4 normal; 5-9 mild; 10-14 moderate; 15-21 severe): 0 Source: Developed by Drs. Reynold Bhagat, Radha Esqueda, Aubrey Garcia and colleagues, with an educational shivam from [employer]. LYNDA-7 Assessment Billing LYNDA-7 Assessment Tool: LYNDA-7 Assessment 01219 Review of Systems Const Denies headache(s) Eyes Denies loss of vision ENT Denies vertigo, Denies dizziness, Denies headache(s) and Denies sore throat Card Denies chest pain, Denies leg edema and Denies lightheadedness Resp Denies cough, Denies hemoptysis and Denies wheezing GI Denies abdominal pain, Denies melena, Denies constipation, Denies diarrhea and Denies vomiting Denies dysuria, Denies urinary frequency and Denies urinary urgency Musc Reports arthralgias (bilateral knee pain), Denies joint swelling, Denies numbness and Denies tingling Neuro Denies Abnormal speech present, Denies behavioral changes, Denies vertigo, Denies dizziness, Denies headache(s), Denies loss of vision, Denies memory loss, Denies numbness and Denies tingling Psych Denies anxiety, Denies behavioral changes, Denies depression, Denies memory loss and Denies panic attacks Bharath/Lymph Denies easy bleeding and Denies easy bruising Aller/Immun Denies wheezing Physical exam (Primary Care) Vital Signs: Last Vital Signs Temp 98.9 F 01/04/25 13:48 Pulse 82 01/04/25 13:48 Resp 18 01/04/25 13:48 BP 122/86 01/04/25 13:48 Pulse Ox 96 01/04/25 13:48 Oxygen Delivery Method Room Air 01/04/25 13:48 BMI result Body Mass Index 34.6 Tobacco/Smoking Status: Tobacco use Status Tobacco use date assessed 01/04/25 01/04/25 13:54 Patient Tobacco Use Status Former Tobacco user 01/04/25 13:54 e-Cigarette/Vaping Use Never Used 01/04/25 13:54 PHQ-9: PHQ-9 Score PHQ-9: Total score 6 01/30/25 12:02 Depression Screening Interpretation: Negative Thrive Assessment: Date of Thrive Assessment Date Thrive assessed 01/04/25 01/04/25 13:54 Currently or been in a relationship where the following occur: No concerns reported Const General: healthy appearing, no acute distress, alert and awake Nutritional Appearance: well nourished Orientation/consciousness: oriented to person, oriented to place and oriented to time HENMT Ears: TM's normal bilaterally General nose exam: Normal nasal mucous membranes and turbinates present Eyes Conjunctivae: conjunctivae normal Sclerae: sclerae normal Pupils: Equal, round and reactive pupils present Neck Neck: Yes no lymphadenopathy and Yes no JVD Thyroid: Thyroid normal Carotids: no bruits Resp Effort & Inspection: normal respiratory effort and not tachypneic Auscultation: no crackles, no rales, no rhonchi and no wheezes Cardio Rate: regular rate Rhythm: regular rhythm Heart sounds: no murmurs and normal S1 and S2 GI Palpation (GI): Soft to palpation, nontender, no hepatomegaly and no splenomegaly Auscultation: normal bowel sounds General: Yes no CVA tenderness Back/Spine/Pelvis Back: no CVA tenderness Skin General skin exam: no rashes or lesions noted and dry skin Neuro General: oriented to person, oriented to place and oriented to time Cranial nerves: Yes Equal, round and reactive pupils present Speech: No Abnormal speech present Gait exam (Neuro): Normal gait present Motor exam (neuro): no tremor noted Extrem Right upper extremity: full ROM Left upper extremity: full ROM Right lower extremity: full ROM and knee Details: no tenderness and no swelling; no edema Left lower extremity: full ROM and knee Details: no tenderness and no swelling; no edema Psych Mental Status: mental status grossly normal Speech and movement: Normal speech and movement present Affect: normal affect Attitude: cooperative Thought process: Normal thought process present Coding Level of Care Code Est Pt Level 4 (32127) Diagnoses Hypertension, unspecified type I10 Hypertension type: unspecified Coronary artery disease involving [place] heart without angina pectoris, unspecified vessel or lesion type I25.10 Coronary Disease-Associated Artery/Lesion type: unspecified vessel or lesion type [place] vs. transplanted heart: [place] heart Associated angina: without angina Mixed hyperlipidemia E78.2 Hyperlipidemia type: mixed hyperlipidemia Impaired fasting glucose R73.01 Hyperkalemia E87.5 Additional Codes LYNDA-7 Assessment Billing - LYNDA-7 Assessment Tool: LYNDA-7 Assessment 92079 ([id number]) PHQ-9 - 67067 - PHQ-9 Billing: Yes ([id number]) Time Spent (min) 38 Assessment & Plan Assessment & Plan (1) HTN (hypertension): Code(s): I10 - Essential (primary) hypertension Category: Medical Qualifiers: Hypertension type: unspecified Qualified Code(s): I10 - Essential (primary) hypertension Plan: Blood pressure 122/86, systolic goal less than 130 mmHg Encouraged DASH diet and activity as tolerated Refrain from alcohol use and if you smoke, smoking cessation is strongly advised Continue lisinopril 20 mg daily, metoprolol 100 mg succinate ER daily (2) CAD (coronary artery disease): Code(s): I25.10 - Atherosclerotic heart disease of [place] coronary artery without angina pectoris Category: Medical Qualifiers: Coronary Disease-Associated Artery/Lesion type: unspecified vessel or lesion type [place] vs. transplanted heart: [place] heart Associated angina: without angina Qualified Code(s): I25.10 - Atherosclerotic heart disease of [place] coronary artery without angina pectoris Plan: No exertional symptoms. Last echo on 07/26/2024 showed EF of 55 to 60%. The patient has not required a cardiac catheterization. Continue high-intensity statin and low-dose aspirin therapy. Per Cardiology note, LDL target goal should be close to 60 mg/dL. And blood pressure should be aggressively controlled. (3) Hyperlipidemia: Code(s): E78.5 - Hyperlipidemia, unspecified Category: Medical Qualifiers: Hyperlipidemia type: mixed hyperlipidemia Qualified Code(s): E78.2 - Mixed hyperlipidemia Plan: Triglycerides 368, total cholesterol 209, LDL 89, HDL 47 LDL goal should be close to 60 per Cardiology The patient is currently on atorvastatin 40 mg-we will increase this to atorvastatin 80 mg and recheck lipid panel in 3 months (4) Impaired fasting glucose: Code(s): R73.01 - Impaired fasting glucose Category: Medical Plan: Recurrent elevated fasting glucose we will add an A1c to his next blood work to further evaluate (5) Hyperkalemia: Code(s): E87.5 - Hyperkalemia Category: Medical Plan: Potassium noted to be elevated continuously. This is possibly due to the patient lisinopril along with decreased kidney function. We will recheck a BMP and advise. Encouraged fluids intake Plan Patient her follow up in 3 months Orders: Orders Hemoglobin A1c 3 Months I10 - Essential (primary) hypertension, I25.10 - Atherosclerotic heart disease of [place] coronary artery without angina pectoris, I45.2 - Bifascicular block, Z00.00 - Encounter for general adult medical examination without abnormal findings, E78.5 - Hyperlipidemia, unspecified, R73.01 - Impaired fasting glucose Comprehensive [place]. Panel Fast 3 Months I10 - Essential (primary) hypertension, I25.10 - Atherosclerotic heart disease of [place] coronary artery without angina pectoris, I45.2 - Bifascicular block, Z00.00 - Encounter for general adult medical examination without abnormal findings, E78.5 - Hyperlipidemia, unspecified, R73.01 - Impaired fasting glucose TSH reflex Free T4 3 Months I10 - Essential (primary) hypertension, I25.10 - Atherosclerotic heart disease of [place] coronary artery without angina pectoris, I45.2 - Bifascicular block, Z00.00 - Encounter for general adult medical examination without abnormal findings, E78.5 - Hyperlipidemia, unspecified, R73.01 - Impaired fasting glucose UA CC w/rflx Micro + Cult 3 Months I10 - Essential (primary) hypertension, I25.10 - Atherosclerotic heart disease of [place] coronary artery without angina pectoris, I45.2 - Bifascicular block, Z00.00 - Encounter for general adult medical examination without abnormal findings, E78.5 - Hyperlipidemia, unspecified, R73.01 - Impaired fasting glucose Lipid Panel 3 Months I10 - Essential (primary) hypertension, I25.10 - Atherosclerotic heart disease of [place] coronary artery without angina pectoris, I45.2 - Bifascicular block, Z00.00 - Encounter for general adult medical examination without abnormal findings, E78.5 - Hyperlipidemia, unspecified, R73.01 - Impaired fasting glucose Complete Blood Count Auto Diff 3 Months I10 - Essential (primary) hypertension, I25.10 - Atherosclerotic heart disease of [place] coronary artery without angina pectoris, I45.2 - Bifascicular block, Z00.00 - Encounter for general adult medical examination without abnormal findings, E78.5 - Hyperlipidemia, unspecified, R73.01 - Impaired fasting glucose Vitamin D 25-OH Total 3 Months I10 - Essential (primary) hypertension, I25.10 - Atherosclerotic heart disease of [place] coronary artery without angina pectoris, I45.2 - Bifascicular block, Z00.00 - Encounter for general adult medical examination without abnormal findings, E78.5 - Hyperlipidemia, unspecified, R73.01 - Impaired fasting glucose Medications: New atorvastatin (Lipitor) 80 mg PO BEDTIME 90 tabs 3RF Discontinued atorvastatin Discontinued Reason: Doctor's Order 40 mg PO DAILY 90 tabs 3RF
[2025-01-04 13:48] VITALS: BP 122/86; PULSE 82; RESP 18; TEMP 37.2; O2SAT 96; BMI 34.6
== END 2025-01-04 14:21 | disposition home or self-care (01) ==
LOC: HO.HMCH 13:23
DX: I10 Essential (primary) hypertension (principal); I25.10 Atherosclerotic heart disease of native coronary artery without angina pectoris; E78.2 Mixed hyperlipidemia; R73.01 Impaired fasting glucose; E87.5 Hyperkalemia

== ENCOUNTER → 2025-01-04 13:22 | Outpatient (BNVA) | payer MEDICARE, SELFPAY | DX: I10 Essential (primary) hypertension (principal); I25.10 Atherosclerotic heart disease of native coronary artery without angina pectoris; E78.00 Pure hypercholesterolemia, unspecified; R73.01 Impaired fasting glucose; E78.2 Mixed hyperlipidemia; E87.5 Hyperkalemia | CPT/HCPCS: 96127; 99212 ==

== ENCOUNTER 2025-05-25 07:43 | Outpatient (REF) | payer MEDICARE, SELFPAY ==
[2025-05-25 07:59] LABS: MANUAL DIFF FLAG NO
[2025-05-25 08:19] LABS: Hematocrit 44.9 % (42.0-52.0); Hemoglobin 14.8 g/dl (14.0-18.0); Imm Gran Abs Auto 0.03 X10*3/uL (0.00-0.03); Imm Gran Pct Auto 0.5 % (0.0-0.4); Lymphocytes Absolute Auto 2.9 X10*3/uL (1.2-4.9); Mean Corpuscular HGB Conc 33.0 g/dl (31.0-36.0); Mean Corpuscular Hemoglobin 30.9 pg (27.0-33.0); Mean Corpuscular Volume 93.7 fL (80.0-98.0); NRBC Abs Auto 0.000 X10*3/uL (0.0-0.012); NRBC Pct Auto 0.0 /100WBC (0.0-0.2); Platelet Count 163 X10*3/uL (160-400); Red Blood Count 4.79 X10*6/uL (4.60-5.80); White Blood Count 6.6 X10*3/uL (4.8-10.8)
[2025-05-25 08:51] LABS: Alanine Aminotransferase 28 U/L (0-40); Albumin Level 4.3 g/dL (3.5-5.0); Alkaline Phosphatase 53 U/L (39-117); Anion Gap 13 (12-20); Aspartate Amino Transferase 34 U/L (5-37); Blood Urea Nitrogen 19 mg/dL (9-16); Calcium 9.7 mg/dL (8.4-10.2); Carbon Dioxide 25 mmol/L (22-29); Chloride 105 mmol/L (96-108); Cholesterol 197 mg/dL (<200); Estimated Glomerular Filt Rate 58; HDL Cholesterol 47 mg/dL (>40); Potassium 5.0 mmol/L (3.3-5.1); Sodium 138 mmol/L (135-145); Total Protein 7.1 g/dL (6.5-8.0); Triglycerides 298 mg/dL (<150)
== END 2025-05-25 07:44 | disposition home or self-care (01) ==
LOC: HO.LAB 07:43
DX: Z00.00 Encounter for general adult medical examination without abnormal findings (principal); I10 Essential (primary) hypertension; I25.10 Atherosclerotic heart disease of native coronary artery without angina pectoris; I45.2 Bifascicular block; R73.01 Impaired fasting glucose; E78.5 Hyperlipidemia, unspecified
CPT/HCPCS: 36415; 80053; 80061; 82306; 83036; 84443; 85025

== ENCOUNTER 2025-06-06 15:23 | Outpatient (AMB) | payer MEDICARE, SELFPAY ==
--- NOTE | 2025-06-06 15:29 | A.OFFPC_ITS ---
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 Accompanied by: Self / Same As Patient Allergies No Known Allergies (No Known Allergies*) Allergy (Verified 06/06/25 15:43) Medication List - Last Reconciled 06/06/25 by MARY Avila aspirin (Adult Aspirin Regimen) 81 mg PO DAILY atorvastatin (Lipitor) 80 mg PO BEDTIME lisinopril 20 mg PO DAILY magnesium oxide 400 mg PO DAILY metoprolol succinate ER 100 mg PO DAILY Tobacco use date assessed: 06/06/25 Fall risk assessment: No Falls in past year Last assessed Fall Risk: 06/06/25 Dental Screening Dental Screen Date: 01/04/25 Did you have a dental visit in the last 12 months?: No Did you have a dental problem in the last 6 months where you did not have access to dental care?: No Was dental information given to patient?: No HPI HPI Comments History of Present Illness Details History of Present Illness The patient is a 79-year-old male presenting for CAD, HTN, HLD, ascending aorta dilatation follow up. Recent labs reviewed. His A1c was 6.0%, which is in the prediabetic range, and he had a slightly elevated fasting glucose. Regarding his cholesterol, his triglycerides have shown a downward trend, decreasing from 368 to 298. His total cholesterol, LDL, and HDL levels are good. His GFR has slightly decreased from 60 to 58 but remains normal. The last cardiology visit was almost a year ago. Denies chest pain, shortness of breath, heart palpitation or dizziness Denies abdominal pain, change in bowel habits Denies any urinary symptoms Health Maintenance The patient's CBC, liver function, thyroid function, and vitamin D levels are normal. Mild dehydration was noted on the chemistry panel, and the patient was advised to increase his water intake. His kidney function is stable. Given his stable condition, the follow-up interval is extended from 3 to 4 months. Labs have been pre-ordered for his next visit. Social History - Diet: The patient was educated on the impact of sugary foods, carbohydrates, and processed foods on his triglyceride levels. Results - CBC: Normal. - Chemistry panel: Shows signs of mild d ehydration. - GFR: 58, previously 60. - Fasting glucose: Slightly elevated. - A1c: 6.0%. - Liver enzymes: Normal. - Lipid panel: Triglycerides 298 (previo usly 368), total cholesterol and LDL are good, HDL is >40. - Thyroid function: Normal. - Vitamin D: Normal. [facility] Medical History Bifascicular block History of prosthetic unicompartmental arthroplasty of both knees Hyperlipidemia HTN (hypertension) CAD (coronary artery disease) Surgical History H/O left knee surgery Family History Father No problems noted. Mother No problems noted. Social History Housing: House Alcohol intake: current Alcohol intake frequency: a few times a month Patient Tobacco Use Status: Former Tobacco user e-Cigarette/Vaping Use: Never Used Second Hand Smoke Exposure: Yes service: No Current occupational status: retired Cognitive needs: No Hearing needs: No Vision needs: Yes (Glasses) Questionnaire PHQ-9 Over the last 2 weeks, how often have you been bothered by any of the following problems? Depression Screening Interpretation: Negative Depression Screening Done: Yes Source: Developed by Drs. Reynold Bhagat, Radha Esqueda, Aubrey Garcia and colleagues, with an educational shivam from [employer]. Thrive Questionnaire Date Thrive assessed: 01/04/25 I am a: Patient What is your living situation today?: I have a steady place to live Within the past 12 months, did the food you bought not last and you didn't have the money to get more?: Never true Within the past 12 months, did you worry whether your food would run out before you got money to buy more?: Never true Do you have trouble paying for medicines?: No Do you have trouble getting transportation to medical appointments?: No Do you have trouble paying your heating and electricity bill?: No Do you have trouble taking care of your child, family member or friend?: No Do you have trouble with day-to-day activities such as bathing, preparing meals, shopping, managing finances, etc.?: No Are you currently unemployed and looking for a job?: Yes Are you interested in more education?: No Please select the resources that you would like help with: None Currently or been in a relationship where the following occur: No concerns reported THRIVE Score: 0 LYNDA-7 AMB Questionnaire LYNDA-7 Date LYNDA - 7 assessed: 01/04/25 Source: Developed by Drs. Reynold Bhagat, Radha Esqueda, Aubrey Garcia and colleagues, with an educational shivam from [employer]. Review of Systems Narrative Review of Systems Const Denies headache(s) Eyes Denies loss of vision ENT Denies vertigo, Denies dizziness, Denies headache(s) and Denies sore throat Card Denies chest pain, Denies leg edema and Denies lightheadedness Resp Denies cough, Denies hemoptysis and Denies wheezing GI Denies abdominal pain, Denies melena, Denies constipation, Denies diarrhea and Denies vomiting Denies dysuria, Denies urinary frequency and Denies urinary urgency Musc Reports arthralgias (bilateral knee pain), Denies joint swelling, Denies numbness and Denies tingling Neuro Denies Abnormal speech present, Denies behavioral changes, Denies vertigo, Denies dizziness, Denies headache(s), Denies loss of vision, Denies memory loss, Denies numbness and Denies tingling Psych Denies anxiety, Denies behavioral changes, Denies depression, Denies memory loss and Denies panic attacks Bharath/Lymph Denies easy bleeding and Denies easy bruising Aller/Immun Denies wheezing Physical exam (Primary Care) Vital Signs: Last Vital Signs Pulse 87 06/06/25 15:30 Resp 18 06/06/25 15:30 BP 136/74 06/06/25 15:30 Pulse Ox 97 06/06/25 15:30 Oxygen Delivery Method Room Air 06/06/25 15:30 BMI result Body Mass Index 33.8 Tobacco/Smoking Status: Tobacco use Status Tobacco use date assessed 06/06/25 06/06/25 15:36 Patient Tobacco Use Status Former Tobacco user 06/06/25 15:36 e-Cigarette/Vaping Use Never Used 06/06/25 15:36 Depression Screening Interpretation: Negative Thrive Assessment: Date of Thrive Assessment Date Thrive assessed 01/04/25 06/06/25 15:36 Currently or been in a relationship where the following occur: No concerns reported Narrative Physical Exam - Constitutional: General appearance is well. - Vitals: Blood pressure is normal. - Respiratory: Lungs are clear to auscultation. Const General: healthy appearing, no acute distress, alert and awake Nutritional Appearance: well nourished Orientation/consciousness: oriented to person, oriented to place and oriented to time HENMT Ears: TM's normal bilaterally General nose exam: Normal nasal mucous membranes and turbinates present Eyes Conjunctivae: conjunctivae normal Sclerae: sclerae normal Pupils: Equal, round and reactive pupils present Neck Neck: Yes no lymphadenopathy and Yes no JVD Thyroid: Thyroid normal Carotids: no bruits Resp Effort & Inspection: normal respiratory effort and not tachypneic Auscultation: no crackles, no rales, no rhonchi and no wheezes Cardio Rate: regular rate Rhythm: regular rhythm Heart sounds: no murmurs and normal S1 and S2 GI Palpation (GI): Soft to palpation, nontender, no hepatomegaly and no splenomegaly Auscultation: normal bowel sounds General: Yes no CVA tenderness Back/Spine/Pelvis Back: no CVA tenderness Skin General skin exam: no rashes or lesions noted and dry skin Neuro General: oriented to person, oriented to place and oriented to time Cranial nerves: Yes Equal, round and reactive pupils present Speech: No Abnormal speech present Gait exam (Neuro): Normal gait present Motor exam (neuro): no tremor noted Extrem Right upper extremity: full ROM Left upper extremity: full ROM Right lower extremity: full ROM and knee Details: no tenderness and no swelling; no edema Left lower extremity: full ROM and knee Details: no tenderness and no swelling; no edema Psych Mental Status: mental status grossly normal Speech and movement: Normal speech and movement present Affect: normal affect Attitude: cooperative Thought process: Normal thought process present Results Reviewed Results Reviewed: Laboratory Tests 05/25/25 07:56 WBC 6.6 RBC 4.79 Hgb 14.8 Hct 44.9 MCV 93.7 MCH 30.9 MCHC 33.0 RDW 12.5 Plt Count 163 Sodium 138 Potassium 5.0 Chloride 105 Carbon Dioxide 25 Anion Gap 13 BUN 19 H Creatinine 1.21 Estimated GFR 58 Fasting Glucose 141 H Estimat Average Glucose 126 Hemoglobin A1c % 6.0 Calcium 9.7 Total Bilirubin 0.7 AST 34 ALT 28 Alkaline Phosphatase 53 Total Protein 7.1 Albumin 4.3 Triglycerides 298 H Cholesterol 197 LDL Cholesterol, Calc 91 HDL Cholesterol 47 25-OH Vitamin D Total 34.6 TSH 0.59 Coding Level of Care Code Est Pt Level 4 (56157) Diagnoses Hypertension, unspecified type I10 Hypertension type: unspecified Coronary artery disease involving [place] heart without angina pectoris, unspecified vessel or lesion type I25.10 Associated angina: without angina Coronary Disease-Associated Artery/Lesion type: unspecified vessel or lesion type [place] vs. transplanted heart: [place] heart Mixed hyperlipidemia E78.2 Hyperlipidemia type: mixed hyperlipidemia Impaired fasting glucose R73.01 Time Spent (min) 38 Assessment & Plan Assessment & Plan (1) HTN (hypertension): Code(s): I10 - Essential (primary) hypertension Category: Medical Qualifiers: Hypertension type: unspecified Qualified Code(s): I10 - Essential (primary) hypertension Plan: Blood pressure 136/74, systolic goal less than 130 mmHg Encouraged DASH diet and activity as tolerated Refrain from alcohol use and if you smoke, smoking cessation is strongly advised Continue lisinopril 20 mg daily, metoprolol 100 mg succinate ER daily (2) CAD (coronary artery disease): Code(s): I25.10 - Atherosclerotic heart disease of [place] coronary artery without angina pectoris Category: Medical Qualifiers: Associated angina: without angina Coronary Disease-Associated A rtery/Lesion type: unspecified vessel or lesion type [place] vs. transplanted heart: [place] heart Qualified Code(s): I25.10 - Atherosclerotic heart disease of [place] coronary artery without angina pectoris Plan: No exertional symptoms. Last echo on 07/26/2024 showed EF of 55 to 60%. The patient has not required a cardiac catheterization. Continue high-intensity statin and low-dose aspirin therapy. Per Cardiology note, LDL target goal should be close to 60 mg/dL. And blood pressure should be aggressively controlled. LDL isn't at goal, but the patient does not want to add another medication to his regimen. (3) Hyperlipidemia: Code(s): E78.5 - Hyperlipidemia, unspecified Category: Medical Qualifiers: Hyperlipidemia type: mixed hyperlipidemia Qualified Code(s): E78.2 - Mixed hyperlipidemia Plan: Triglycerides 298-decreased from 368 mg/dl LDL 91 increased from 89 mg/dl LDL goal should be close to 60 per Cardiology continue atorvastatin 80 mg daily declined adding any other medication to his regimen (4) Impaired fasting glucose: Code(s): R73.01 - Impaired fasting glucose Category: Medical Plan: fasting glucose 141, A1c 6.0% Discussed lifestyle modifications including dietary changes and physical activity Plan Plan Patient was informed and verbally consented to the use of an ambient scribe for clinic note documentation during this visit. 1. Prediabetes The patient's A1c of 6.0% and slightly elevated fasting glucose place him in the prediabetic range. The current plan is to continue monitoring and manage this with lifestyle modifications to prevent progression. 2. Hypertriglyceridemia Triglycerides are trending in the right direction, down to 298 from a previous 368. This is managed by advising the patient to watch his intake of sugary foods, carbohydrates, and processed foods. LDL and HDL cholesterol levels are good. Will continue to monitor with labs. Discussion Notes I reviewed the patient's recent lab results with him. We discussed that his A1c is 6.0%, which is in the prediabetic range, and the goal is to prevent it from progressing. I noted the improvement in his triglyceride levels and reinforced the importance of limiting sugary foods, carbohydrates, and processed foods. I advised him to increase his water intake due to signs of mild dehydration and stable kidney function. As he is doing well overall, I am extending his follow- up appointment to 4 months and have pre-ordered his next set of labs. Patient Instructions - Drink more water to stay hydrated. - Continue to watch your diet, particularly limiting sugary foods, carbohydrates, and processed foods to help manage your cholesterol. - I have ordered your next set of labs; please have them done before your next visit. - Your next follow-up appointment will be in 4 months. Orders: Orders Complete Blood Count Auto Diff 4 Months E78.2 - Mixed hyperlipidemia, I10 - Essential (primary) hypertension, I25.10 - Atherosclerotic heart disease of [place] coronary artery without angina pectoris, I45.2 - Bifascicular block, R73.01 - Impaired fasting glucose Lipid Panel 4 Months E78.2 - Mixed hyperlipidemia, I10 - Essential (primary) hypertension, I25.10 - Atherosclerotic heart disease of [place] coronary artery without angina pectoris, I45.2 - Bifascicular block, R73.01 - Impaired fasting glucose UA CC w/rflx Micro + Cult 4 Months E78.2 - Mixed hyperlipidemia, I10 - Essential (primary) hypertension, I25.10 - Atherosclerotic heart disease of [place] coronary artery without angina pectoris, I45.2 - Bifascicular block, R73.01 - Impaired fasting glucose TSH reflex Free T4 4 Months E78.2 - Mixed hyperlipidemia, I10 - Essential (primary) hypertension, I25.10 - Atherosclerotic heart disease of [place] coronary artery without angina pectoris, I45.2 - Bifascicular block, R73.01 - Impaired fasting glucose Comprehensive [place]. Panel Fast 4 Months E78.2 - Mixed hyperlipidemia, I10 - Essential (primary) hypertension, I25.10 - Atherosclerotic heart disease of [place] coronary artery without angina pectoris, I45.2 - Bifascicular block, R73.01 - Impaired fasting glucose Vitamin D 25-OH Total 4 Months E78.2 - Mixed hyperlipidemia, I10 - Essential (primary) hypertension, I25.10 - Atherosclerotic heart disease of [place] coronary artery without angina pectoris, I45.2 - Bifascicular block, R73.01 - Impaired fasting glucose Hemoglobin A1c 4 Months E78.2 - Mixed hyperlipidemia, I10 - Essential (primary) hypertension, I25.10 - Atherosclerotic heart disease of [place] coronary artery without angina pectoris, I45.2 - Bifascicular block, R73.01 - Impaired fasting glucose
[2025-06-06 15:30] VITALS: BP 136/74; PULSE 87; RESP 18; O2SAT 97; BMI 33.8
== END 2025-06-06 15:51 | disposition home or self-care (01) ==
LOC: HO.HMCH 15:24
DX: I10 Essential (primary) hypertension (principal); I25.10 Atherosclerotic heart disease of native coronary artery without angina pectoris; E78.2 Mixed hyperlipidemia; R73.01 Impaired fasting glucose

== ENCOUNTER → 2025-06-06 15:23 | Outpatient (BNVA) | payer MEDICARE, SELFPAY | DX: I25.10 Atherosclerotic heart disease of native coronary artery without angina pectoris (principal); I10 Essential (primary) hypertension; E78.2 Mixed hyperlipidemia; R73.01 Impaired fasting glucose | CPT/HCPCS: 99212 ==

== ENCOUNTER 2025-06-08 13:25 | Outpatient (AMB) | payer MEDICARE, SELFPAY ==
--- NOTE | 2025-06-08 13:41 | A.OFFVIS_ITS ---
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 He has been doing well from cardiac perspective. Denies any exertional symptoms chest pain. Remains very active. Takes care of his own lawn. Denies any palpitations. Denies any lightheadedness, syncope. His last LDL is improved to 91 mg/dL. His blood pressures been well controlled. Denies any orthopnea, PND, leg edema. Recent echocardiogram shows preserved LV ejection fraction with mildly dilated ascending aorta. [facility] Medical History Bifascicular block History of prosthetic unicompartmental arthroplasty of both knees Hyperlipidemia HTN (hypertension) CAD (coronary artery disease) Surgical History H/O left knee surgery Family History Father No problems noted. Mother No problems noted. Social History Housing: House Alcohol intake: current Alcohol intake frequency: a few times a month Patient Tobacco Use Status: Former Tobacco user e-Cigarette/Vaping Use: Never Used Second Hand Smoke Exposure: Yes service: No Current occupational status: retired Cognitive needs: No Hearing needs: No Vision needs: Yes (Glasses) Review of Systems Const Denies chills, Denies fatigue, Denies fever(s), Denies frequent falls, Denies weakness, Denies weight gain and Denies weight loss ENT Denies dizziness Card Denies chest pain, Denies leg edema, Denies lightheadedness, Denies palpitations, Denies dyspnea, Denies dyspnea on exertion, Denies orthopnea and Denies other (loss of consciousness) Resp Denies cough, Denies dyspnea and Denies dyspnea on exertion GI Denies hematochezia and Denies change in stool character Musc Denies abnormal gait, Denies muscle weakness, Denies numbness, Denies radiating pain into limb and Denies tingling Neuro Denies abnormal gait, Denies dizziness, Denies frequent falls, Denies numbness, Denies tingling and Denies weakness Endo Denies fatigue and Denies palpitations Physical Exam Vital Signs: Last Vital Signs Pulse 74 06/08/25 13:42 BP 122/84 06/08/25 13:42 BMI result Body Mass Index 33.9 Const General: cooperative, comfortable, no acute distress and alert Nutritional Appearance: obese Orientation/consciousness: patient oriented x3 Limitations: no limitations HEENT Head: Yes normal to inspection, Yes normocephalic and Yes atraumatic Eyes General: appearance normal, both eyes and all related structures Neck Neck: Yes normal visual inspection, Yes trachea midline and Yes supple Carotids: other ( No carotid bruit) Chest Chest palpation & inspection: normal inspection of the chest Resp Effort & Inspection: normal respiratory effort Auscultation: clear to auscultation bilaterally Cardio Jugular venous distension: no JVD Palpation: normal PMI Rate: regular rate Rhythm: regular rhythm Heart sounds: S1 normal heart sound present, S2 normal heart sound present and Other heart sounds present ( S4 present) Peripheral pulses: Peripheral pulses 2+ throughout GI Inspection: Yes obesity Auscultation: normal bowel sounds Skin General skin exam: no rashes or lesions noted and ecchymosis Neuro General: patient oriented x3 and no focal motor deficits Extrem General: Yes no clubbing, cyanosis or edema Psych Appearance: grossly normal Office Procedures EKG Details: EKG shows normal sinus rhythm with right bundle-branch block with left anterior fascicular block and inferior infarct. Unchanged [id number], Complete Assessment & Plan Assessment & Plan (1) CAD (coronary artery disease): Code(s): I25.10 - Atherosclerotic heart disease of [place] coronary artery without angina pectoris Category: Medical Qualifiers: Associated angina: without angina Coronary Disease-Associated Artery/Lesion type: unspecified vessel or lesion type [place] vs. transplanted heart: [place] heart Qualified Code(s): I25.10 - Atherosclerotic heart disease of [place] coronary artery without angina pectoris Plan: Coronary artery disease silent inferior myocardial infarction. Currently having no symptoms. Continue aggressive risk factor modification. Continue low-dose aspirin therapy. Currently on high-intensity statin therapy with improving LDL but not at goal. Discussed with him. He is not interested in additional therapy at this point time. Continue aggressive blood pressure control which is currently well optimized on current therapy with lisinopril and metoprolol. Advised to call me with any new symptoms. (2) Bifascicular block: Code(s): I45.2 - Bifascicular block Category: Medical Plan: Bifascicular block which is old. Currently no change in symptoms. No interventions required. Continue annual EKGs follow-up. (3) Ascending aorta dilatation: Code(s): I77.810 - Thoracic aortic ectasia Category: Medical Plan: Mildly dilated ascending aorta most likely due to atherosclerosis and hypertension. No interventions required. Will follow up with echocardiogram in 1 year's time. Advised to avoid sudden strenuous isometric exercise. Follow up in the clinic in 1 year's time, sooner PRN. Thank you for allowing me to partake in his care Coding Level of Care Code Complex visit Add On [id number] Diagnoses Coronary artery disease involving [place] heart without angina pectoris, unspecified vessel or lesion type I25.10 Associated angina: without angina Coronary Disease-Associated Artery/Lesion type: unspecified vessel or lesion type [place] vs. transplanted heart: [place] heart Bifascicular block I45.2 Ascending aorta dilatation I77.810 CPT Codes EKG - CPT: 45098-[id number], Complete ([id number])
[2025-06-08 13:42] VITALS: BP 122/84; PULSE 74; BMI 33.9
== END 2025-06-08 14:11 | disposition home or self-care (01) ==
LOC: HO.HCS 13:26
PROVIDERS: Visit Provider Internal Medicine Cardiovascular Disease
DX: I25.10 Atherosclerotic heart disease of native coronary artery without angina pectoris (principal); I45.2 Bifascicular block; I77.810 Thoracic aortic ectasia
CPT/HCPCS: 93010; 99213; G2211

== ENCOUNTER → 2025-06-08 13:25 | Outpatient (BNVA) | payer MEDICARE, SELFPAY | PROVIDERS: Visit Provider Internal Medicine Cardiovascular Disease | DX: I25.10 Atherosclerotic heart disease of native coronary artery without angina pectoris (principal); I45.2 Bifascicular block; I77.810 Thoracic aortic ectasia | CPT/HCPCS: 93005; 99212 ==